=== PATIENT | male | born 1990 | race Caucasian/White ===

== ENCOUNTER 2017-01-16 14:49 | Inpatient (IN) | payer OTHER ==
[~2017-01-16] VITALS: Ht 162.6 cm; Wt 63.5 kg
[~2017-01-16 14:49] MED LIST: HUMALOG SL100 UNITS/; LANTUS100 U/ML SC; NOVOLOG100 U/ML SUBQ
--- NOTE | 2017-01-16 14:49 | NUR ---
Patient was BIBA at this time and ambulated [facility] bed [facility].
[2017-01-16 14:53] VITALS: BP 148/85
[2017-01-16] MEDS ORDERED: NOVOLIN R100 U/ML SUBQ (14:59)
[2017-01-16] MEDS ORDERED: LANTUS INS100 UNITS/ SUBQ (14:59)
[2017-01-16] MEDS ORDERED: KETOROLAC 30 MG/ML VIAL IVP ONE (15:25)
[2017-01-16] MEDS ORDERED: NACL 0.9% 1,000 ML IV ONE ×2 (15:25→16:30)
[2017-01-16] MEDS ORDERED: ONDANSETRON 4 MG/2 ML VIAL IVP ONE ×2 (15:25→17:05)
--- NOTE | 2017-01-16 15:26 | NUR ---
Dr. Sweeney evaluating patient at bedside.
--- NOTE | 2017-01-16 15:30 | NUR ---
PATIENT PRESENTS TO ED WITH BIBA - ABD PAIN WITH VOMITING AND CONSTIPATION STARTING THIS WEEKEND; SKIN IS PINK/WARM/DRY; AAOX4 WITH EVEN AND STEADY GAIT; LUNGS CLEAR BL; HR EVEN AND REGULAR; PT DENIES ANY FEVER, CP, SOB, OR COUGH AT THIS TIME; PATIENT STATES PAIN OF 10/10 AT THIS TIME; VSS; PATIENT POSITIONED FOR COMFORT; HOB ELEVATED; BEDRAILS UP X2; BED DOWN. ER MD MADE AWARE OF PT STATUS.
--- NOTE | 2017-01-16 16:15 | NUR ---
1ML / 50 MCG FENTANYL GIVEN IV RIGHT AC 20G PAIN 10/10
--- NOTE | 2017-01-16 16:15 | NUR ---
1ML / 50 MCG FENTANYL WASTED
[2017-01-16] MEDS ORDERED: METOCLOPRAMIDE 10 MG/2 ML INJ VIAL IVP ONE (16:30)
--- NOTE | 2017-01-16 17:01 | NUR ---
PT UNABLE TO PROVIDE URINE AT THIS TIME
[2017-01-16] MEDS ORDERED: fentaNYL 0.05 MG/ML VIAL IVP ONE (17:05)
[2017-01-16] MEDS ORDERED: MORPHINE SULFATE 4 MG/ML SYR IVP PRN (17:15)
[2017-01-16] MEDS ORDERED: MORPHINE SULFATE 2 MG/ML SYR IVP PRN (17:15)
[2017-01-16] MEDS ORDERED: ACETAMINOPHEN 325 MG TAB PO PRN (17:15)
[2017-01-16] MEDS: DEXT 5% /NACL 0.9% 1,000 ML IV SCH (17:15)
[2017-01-16] MEDS ORDERED: METOCLOPRAMIDE 10 MG/2 ML INJ VIAL IVP PRN ×2 (17:15→20:20)
[2017-01-16] MEDS ORDERED: ONDANSETRON 4 MG/2 ML VIAL IVP PRN ×2 (17:15→21:00)
--- NOTE | 2017-01-16 17:41 | NUR ---
Patient will be admitted to care of DR HYATT. Admited to [facility]. Will go to room 111A. Belongings list completed. Report to RUTH BAJWA.
--- NOTE | 2017-01-16 18:05 | NUR ---
RECEIVED PT FROM ER, 26 YEAR OLD MALE WITH A DIAGNOSIS OF INTRACTABLE NAUSEA AND VOMITING, NO N/V AT THIS TIME, PT IS ABLE TO AMBULATE, SKIN INTACT, IV ON RIGHT AC 20G PATENT AND INTACT, VITALS STABLE, MRSA COLLECTED, ORIENTED PT IN THE ROOM AND USE OF CALL LIGHT, SAFETY/FALL PRECAUTION ENFORCED, CALL LIGHT WITHIN REACH, WILL CONTINUE TO MONITOR.
--- NOTE | 2017-01-16 19:11 | NUR ---
ENDORSED PT TO HUGO Hanna RN FOR CONTINUITY OF CARE AND CONTINUATION OF ADMISSION. PT IS STABLE AT THIS TIME.
--- NOTE | 2017-01-16 19:25 | NUR ---
RECEIVED REPORT FROM DAY NURSEIRON. PATIENT RESTING IN BED, SIGNIFICANT OTHER AT BEDSIDE. NO RESPIRATORY DISTRESS, SOB, OR DISCOMFORT. INITIAL ASSESSMENT AND BODY CHECK DONE. PATIENT IS AOX4, SKIN IS INTACT, IV ACCESS TO RIGHT AC 20G, PATENT. NO N/V NOTED AT THIS TIME. DISCUSSED PLAN OF CARE, MEDICATION REGIMENT, AND PAIN MANAGEMENT WITH PATIENT. PATIENT VERBALIZED UNDERSTANDING. PLACED PATIENT ON SAFETY PRECAUTIONS. CALL LIGHT LEFT WITHIN REACH, WILL CONTINUE TO MONITOR.
[2017-01-16 19:30] VITALS: BP 148/78
[2017-01-16] MEDS: INSULIN LISPRO SLIDING SCALE 100 UNITS/ML VIAL SUBQ PRN (20:18)
[2017-01-16] MEDS: BLOOD GLUCOSE MONITORING 1 DEV DEV FS SCH (20:52)
[2017-01-16] MEDS: FAMOTIDINE 20 MG/2 ML VIAL IVP SCH (21:16)
--- NOTE | 2017-01-16 22:05 | NUR ---
PATIENT RESTING IN BED, SPEAKING ON CELL PHONE. NO RESPIRATORY DISTRESS, SOB, OR DISCOMFORT. CALL LIGHT LEFT WITHIN REACH, WILL CONTINUE TO MONITOR.
[2017-01-17] VITALS: BP 106/57
--- NOTE | 2017-01-17 00:56 | NUR ---
PATIENT IN BED, SLEEPING. NO RESPIRATORY DISTRESS, SOB, OR DISCOMFORT. CALL LIGHT LEFT WITHIN REACH, WILL CONTINUE TO MONITOR.
--- NOTE | 2017-01-17 03:08 | NUR ---
PATIENT ASLEEP. NO RESPIRATORY DISTRESS, SOB, OR DISCOMFORT. CALL LIGHT LEFT WITHIN REACH, WILL CONTINUE TO MONITOR.
[2017-01-17] MEDS: DEXT 5% /NACL 0.9% 1,000 ML IV SCH ×2 (03:58→13:15)
--- NOTE | 2017-01-17 06:16 | NUR ---
PATIENT SLEEPING. NO RESPIRATORY DISTRESS, SOB, OR DISCOMFORT. CALL LIGHT LEFT WITHIN REACH, WILL CONTINUE TO MONITOR.
[2017-01-17] MEDS: BLOOD GLUCOSE MONITORING 1 DEV DEV FS SCH ×2 (06:26→12:24)
[2017-01-17] MEDS: INSULIN LISPRO SLIDING SCALE 100 UNITS/ML VIAL SUBQ PRN ×2 (06:26→12:47)
--- NOTE | 2017-01-17 07:05 | NUR ---
REPORT GIVEN TO DAY NURSEANDREA. PATIENT RESTING IN BED, STABLE. NO RESPIRATORY DISTRESS, SOB, OR DISCOMFORT. ALL NEEDS ATTENDED TO DURING SHIFT, CALL LIGHT LEFT WITHIN REACH.
--- NOTE | 2017-01-17 07:05 | NUR ---
RECEIVED REPORT FROM NIGHT NURSE. PT IS AAOX4. PT IS ON ROOM AIR, IV TO RIGHT HAND 22G INFUSING WELL, PT STATES NO NAUSEA OR STOMACH DISCOMFORT AT THIS TIME. INITIAL ASSESSMENT COMPLETED. REVIEWED PLAN OF ACRE WITH PT. PT VERBALIZED UNDERSTANDING. ORIENTED PT TO ROOM AND ENVIRONMENT, CALL LIGHT WITHIN REACH. WILL CONTINUE TO MONITOR.
[2017-01-17 08:00] VITALS: BP 119/72
--- NOTE | 2017-01-17 08:28 | NUR ---
PATIENT HAS BEEN SCREENED AND CATEGORIZED MODERATE NUTRITION RISK. PATIENT WILL BE SEEN WITHIN 3-5 DAYS OF ADMISSION. 01/19/17-01/21/[address]
[2017-01-17] MEDS: FAMOTIDINE 20 MG/2 ML VIAL IVP SCH (08:50)
--- NOTE | 2017-01-17 08:56 | NUR ---
DUE MEDICATION GIVEN, PT CURRENTLY SLEEPING. NO S/S OF DISTRESS OR DISCOMFORT NOTED. CALL LIGHT WITHIN RAECH. WILL CONTINUE TO MONITOR.
[2017-01-17] MEDS ORDERED: ENOXAPARIN 40 MG/0.4 ML SYR SUBQ SCH (09:00)
--- NOTE | 2017-01-17 10:28 | NUR ---
CM NOTE INITIAL REVIEW SENT TO [facility] FAX# [phone] PH# SHANTE [phone] AND TO [facility] [phone] PH# [phone]
--- NOTE | 2017-01-17 11:05 | NUR ---
CHECKED IN ON PT, PT CURRENTLY AWAKE RESTING IN BED. ALL NEEDS MET. CALL LIGHT WITHIN REACH.
--- NOTE | 2017-01-17 13:32 | NUR ---
PT CURRENTLY VISITING WITH FAMILY, PT STATES NO NAUSEA AT THIS TIME. WILL CONTINUE TO MONITOR.
--- NOTE | 2017-01-17 15:10 | NUR ---
REVIEWED DISCHARGE PLAN WITH PT. PT VERBALIZED UNDERSTANDING.
--- NOTE | 2017-01-17 15:55 | NUR ---
PT SIGNED ALL DISCHARGE PAPERWORK, IV REMOVED TIP INTACT. PRESCRIPTION AND EDUCATION GIVEN PT VERBALIZED UNDERSTANDING. ALL PERSOAL BELONGINGS WITH PT, IS BANDS REMOVED.
[2017-01-17 15:58] VITALS: BP 136/85
[2017-01-17] MEDS ORDERED: LANTUS SOLOS100 U/ML SUBQ (16:03)
--- NOTE | 2017-01-17 16:18 | NUR ---
PT WAS WALKED OUT TO FRONT LOBBY IN STABLE CONDITION.
== END 2017-01-17 16:18 | disposition home or self-care (01) | DRG 812 ==
LOC: MED 15:16 → MTU 17:20
PROVIDERS: ADMIT Hospitalist; ATTEND Hospitalist
DX: T40.7X1A Poisoning by cannabis (derivatives), accidental (unintentional), initial encounter (principal); E10.9 Type 1 diabetes mellitus without complications; R11.2 Nausea with vomiting, unspecified; F12.10 Cannabis abuse, uncomplicated; R03.0 Elevated blood-pressure reading, without diagnosis of hypertension; Y92.89 Other specified places as the place of occurrence of the external cause; Z71.51 Drug abuse counseling and surveillance of drug abuser

== ENCOUNTER 2017-08-23 22:56 | Inpatient (IN) | payer OTHER ==
[~2017-08-23] VITALS: Ht 165.1 cm; Wt 61.2 kg
[~2017-08-23 22:56] MED LIST changes: -HUMALOG SL100 UNITS/; +INSU100S22 SUBQ; -LANTUS100 U/ML SC; -NOVOLOG100 U/ML SUBQ
--- NOTE | 2017-08-23 22:56 | NUR ---
BIBA TO ER BED 11
[2017-08-23 23:00] VITALS: BP 143/80
--- NOTE | 2017-08-23 23:00 | NUR ---
IV LINE PLACED BY MEDICS ON ROUTE.
--- NOTE | 2017-08-23 23:00 | NUR ---
26 Y/O M BIBA W/C/O N/V AND EPIGASTRIC PAIN X TODAY AT 1500 GETTING WORSE. MED HX DM TYPE 1, GASTRITIS. ZOFRAN 4MG X 1 GIVEN ON ROUTE BY MEDICS IV 30 MINUTES AGO. BS [address]
--- NOTE | 2017-08-23 23:20 | NUR ---
PER ER OK FOR PT TO HAVE ICE CHIPS. ICE PROVIDED TO PT AT BEDSIDE.
[2017-08-23] MEDS ORDERED: NACL 0.9% 1,000 ML IV SCH (23:23)
[2017-08-23] MEDS ORDERED: PANTOPRAZOLE 40 MG INJ VIAL IVP ONE (23:25)
[2017-08-23] MEDS ORDERED: MORPHINE SULFATE 4 MG/ML SYR IVP ONE (23:25)
[2017-08-23] MEDS ORDERED: ONDANSETRON 4 MG/2 ML VIAL IVP ONE (23:25)
--- NOTE | 2017-08-23 23:49 | NUR ---
PT STATES HE IS UNABLE TO PROVIDE URINE SAMPLE AT THE MOMENT. MARLA ROBIN MADE AWARE.
[2017-08-23 23:50] LABS: ANION GAP 15.8 (8-16); CARBON DIOXIDE 26.4 mmol/L (21-32); CHLORIDE 98 mmol/L (98-107); CREATININE 1.1 mg/dL (0.7-1.3); GFR ARICAN-AMERICAN 105 mL/min (>90); GLUCOSE 332 mg/dL (74-106); POTASSIUM 4.2 mmol/L (3.5-5.1); SODIUM SERUM 136 mmol/L (136-145); UREA NITROGEN, BLOOD 13 mg/dL (7-18)
[2017-08-23 23:51] LABS: HEMATOCRIT 49.5 % (36-52); HEMOGLOBIN 16.7 g/dL (12.0-18.0); MEAN CORPUSCULAR HEMOGLOBIN 31 pg (27-31); MEAN CORPUSCULAR HGB CONC 34 g/dL (33-37); MEAN CORPUSCULAR VOLUME 92 fL (80-94); PLATELET COUNT (AUTO) 182 K/uL (140-450); RED BLOOD CELL COUNT(AUTO) 5.41 MIL/uL (4.20-6.10); RED CELL DISTRIBUTION WIDTH 12.6 % (11.6-13.7)
[2017-08-23 23:56] LABS: ALBUMIN 4.5 g/dL (3.4-5.0); ASPARTATE AMINOTRANSFERASE 16 U/L (15-37); LIPASE 45 U/L (73-393); TOTAL BILIRUBIN 0.7 mg/dL (0.0-1.0)
[2017-08-24 00:04] LABS: WHITE BLOOD COUNT (AUTO) 18.4 K/uL (4.8-10.8)
[2017-08-24 00:05] LABS: EOSINOPHILS % (MANUAL) 1 % (0-4); LYMPHOCYTES % (MANUAL) 1 % (20-46); MONOCYTES % (MANUAL) 1 % (5-12)
[2017-08-24 00:28] LABS: ACETONE, SERUM NEGATIVE (NEGATIVE)
[2017-08-24 00:29] LABS: APPEARANCE,URINE CLEAR (CLEAR); BILIRUBIN,URINE NEGATIVE (NEGATIVE); BLOOD, URINE TRACE-I (NEGATIVE); COLOR,URINE YELLOW (YELLOW); LEUKOCYTE ESTERASE ,URINE NEGATIVE (NEGATIVE); NITRITE, URINE NEGATIVE (NEGATIVE); PH,URINE 7.5 (5.0-9.0); UGLUCOSE 2+ (NEGATIVE)
[2017-08-24] MEDS ORDERED: KETOROLAC 30 MG/ML VIAL IVP ONE (00:30)
[2017-08-24 00:36] LABS: RBC,URINE 0-5 (RARE) /HPF (0-5); WBC,URINE 0-5 (RARE) /HPF (0-5)
--- NOTE | 2017-08-24 01:08 | NUR ---
PT TAKEN FOR CT VIA WHEELCHAIR.
--- NOTE | 2017-08-24 01:24 | NUR ---
PT BACK FROM CT.
[2017-08-24] MEDS ORDERED: INSU100S22 SUBQ (02:19)
[2017-08-24] MEDS ORDERED: INSU100S45 SUBQ (02:19)
[2017-08-24] MEDS ORDERED: ACETAMINOPHEN 325 MG TAB PO PRN (02:20)
[2017-08-24] MEDS ORDERED: MORPHINE SULFATE 2 MG/ML SYR IVP PRN (02:20)
[2017-08-24] MEDS ORDERED: MORPHINE SULFATE 4 MG/ML SYR IVP PRN (02:20)
--- NOTE | 2017-08-24 02:24 | NUR ---
BS 258, PER PT LANTUS INSULIN 50 UNITS ADMINISTERED BEFORE COMING TO HOSPITAL. ER MADE AWARE.
[2017-08-24 02:50] LABS: BARBITURATE, URINE NEG. ng/ml (NEG <=200); BENZODIAZEPINE, URINE NEG. ng/mL (NEG <=200); CANNABINOID, URINE POS. ng/mL (NEG <=50); COCAINE, URINE NEG. ng/mL (NEG <=300); OPIATE, URINE NEG. ng/mL (NEG <=2000); PHENCYCLIDINE SCREEN,URINE NEG. ng/mL (NEG <=25)
--- NOTE | 2017-08-24 03:06 | NUR ---
Patient will be admitted to care of DR guardado. Admited to TELEMETRY. Will go to room 104B. Belongings list completed. Report to RUTH RAMIREZ.
--- NOTE | 2017-08-24 03:15 | NUR ---
PT TRASFERED TO FLOOR VIA GURNEY, ACCOMPANIED BY TWO RNs. NO S/S OF DISTRESS NOTED DURING TRANSFER.
--- NOTE | 2017-08-24 03:20 | NUR ---
RECEIVED PT FROM ER VIA RAFFY BUSTILLO AAOX4 AMBULATORY IV ON LEFT AC PATENT ON TELEMETRY SR , MRSA NARES KPROTOCOL TAKEN AND SENT TO LAB, PT AND FAMI ORIENTED TO THE FLOOR CALL LIGHT WITHIN REACH
[2017-08-24 03:30] VITALS: BP 105/53
[2017-08-24] MEDS: ONDANSETRON 4 MG/2 ML VIAL IVP PRN ×2 (03:48→09:15)
[2017-08-24] MEDS: NACL 0.9% 1,000 ML IV SCH ×2 (03:52→11:27)
--- NOTE | 2017-08-24 04:00 | NUR ---
PT COMPLAINT OF NAUSEAS AND MEDIC IS GIVEN ORDER
--- NOTE | 2017-08-24 05:36 | NUR ---
PT ON DEEP SLEEP AFTER AIN MEDIC GIVEN ON TELEMETRY SR AND IV ON LEFT AC INFUSING WELL NOT DISTRESS NOTED
[2017-08-24] MEDS: BLOOD GLUCOSE MONITORING 1 DEV DEV FS SCH ×2 (06:20→12:11)
[2017-08-24] MEDS: INSULIN LISPRO SLIDING SCALE 100 UNITS/ML VIAL SUBQ PRN ×2 (06:22→12:31)
--- NOTE | 2017-08-24 06:45 | NUR ---
BLOOD SUGAR 240 COVERAGE WITH 4 UNITS SUBQ FOLLOW PROTOCOL , ON TELEMETRY SR
--- NOTE | 2017-08-24 07:15 | NUR ---
RECEIVED REPORT FROM NIGHT NURSE, PT IS AAOX4, ON ROOM AIR, IV TO LEFT AC 18G INFUSING WELL, SKIN INTACT, PT STATES NO NAUSEA AT THIS TIME, INITIAL ASSESSMENT COMPLETED, REVIEWED PLAN OF CARE WITH PT, PT VERBALIZED UNDERSTANDING, ALL SAFETY PRECAUTIONS MET, CALL LIGHT WITHIN REACH. WILL CONTINUE TO MONITOR.
--- NOTE | 2017-08-24 07:50 | NUR ---
PATIENT HAS BEEN SCREENED AND CATEGORIZED MODERATE NUTRITION RISK. PATIENT WILL BE SEEN WITHIN 3-5 DAYS OF ADMISSION. 08/26/17-08/28/[address]
[2017-08-24 08:00] VITALS: BP 102/55
[2017-08-24] MEDS ORDERED: ENOXAPARIN 40 MG/0.4 ML SYR SUBQ SCH (09:00)
--- NOTE | 2017-08-24 09:19 | NUR ---
DUE MEDICATIONS GIVEN, PT C/O NAUSEA MEDICATED PER MD ORDERS, PT STATES HE WAS NOT ABLE TO BREAKFAST DUE TO THE NAUSEA, ALL NEEDS MET, CALL LIIGHT WITHIN REACH.
--- NOTE | 2017-08-24 11:14 | NUR ---
CM NOTE INITIAL REVIEW FAXED TO [facility] [phone] ROBI ESQUIVELA PH# [phone]
--- NOTE | 2017-08-24 12:32 | NUR ---
PT ATE LUNCH, PT STATES HE TOLERATED WELL. CURRENTLY RESTING, NO S/S OF DISTRESS NOTED. ALL NEEDS MET. WILL CONTINUE TO MONITOR.
--- NOTE | 2017-08-24 14:10 | NUR ---
PT CURRENTLY SLEEPING, EASILY AWAKEN, ALL NEEDS MET. CALL LIGHT WITHIN REACH. WILL CONTINUE TO MONITOR.
--- NOTE | 2017-08-24 15:27 | NUR ---
DISCUSSED DISCHARGE PLAN WITH PT, PT VERBALIZED UNDERSTANDING.
--- NOTE | 2017-08-24 16:00 | NUR ---
PT SIGNED ALL DISCHARGE PAPERWORK, DISCHARGE EDUCATION GIVEN, FOLLOW UP INFORMATION GIVEN, MEDICATION EDUCATION GIVEN. PT VERBALIZED UNDERSTANDING, IV REMOVED TIP INTACT, ALL PERSONAL BELONGINGS WITH PT.
--- NOTE | 2017-08-24 16:07 | NUR ---
PT WAS WALKED OUT TO FRONT LOBBY IN STABLE CONDITION
[2017-08-24] MEDS ORDERED: INSULIN DETEMIR 100 UNITS/ML 10 ML VIAL SUBQ SCH (21:00)
== END 2017-08-24 16:07 | disposition home or self-care (01) | DRG 249 ==
LOC: MED 22:56 → MTU 08-24 02:22
PROVIDERS: ADMIT Hospitalist; ATTEND Hospitalist
DX: K52.9 Noninfective gastroenteritis and colitis, unspecified (principal); E87.3 Alkalosis; E10.65 Type 1 diabetes mellitus with hyperglycemia; E86.0 Dehydration; Z79.4 Long term (current) use of insulin
CPT/HCPCS: 36415; 36600; 80053; 80305; 81001; 82009; 82803; 82948; 83690; 85025; 87081; 96361; 96374; 96375; 99285; C9113; J1650; J1815; J1885; J2270; J2405; J7030

== ENCOUNTER 2017-09-08 10:42 | Emergency (ER) | payer OTHER ==
[~2017-09-08] VITALS: Ht 165.1 cm; Wt 59.0 kg
[~2017-09-08 10:42] MED LIST changes: +INSU100S45 SUBQ
--- NOTE | 2017-09-08 10:44 | NUR ---
PT BIBA TO BED 7 AT THIS TIME.
[2017-09-08 10:49] VITALS: BP 157/81
[2017-09-08] MEDS ORDERED: NACL 0.9% 1,000 ML IV ONE (10:50)
[2017-09-08] MEDS ORDERED: ONDANSETRON 4 MG/2 ML VIAL IVP ONE (10:50)
--- NOTE | 2017-09-08 10:50 | NUR ---
PATIENT BIBA W/ C/O N/V AND EPIAGSTRIC PAIN SINXCE 4 AM; HX OF GASTRITIS AND DM .PER EMS TGHEY GAVE PT 4 MG ZOFRAN IVP;SKIN IS PINK/WARM/DRY; AAOX4 WITH EVEN AND STEADY GAIT; LUNGS CLEAR BL; HR EVEN AND REGULAR; PT DENIES ANY FEVER, CP, SOB, OR COUGH AT THIS TIME; PATIENT STATES PAIN OF 10/10 AT THIS TIME;PATIENT POSITIONED FOR COMFORT; HOB ELEVATED; BEDRAILS UP X2; BED DOWN. ER MD MADE AWARE OF PT STATUS.
[2017-09-08] MEDS ORDERED: HYDROmorphone 1 MG/ML AMP IVP ONE (11:20)
[2017-09-08 11:30] LABS: BASOPHILS # (AUTO) 0.3 K/uL (0.00-0.22); BASOPHILS % (AUTO) 2.5 % (0.0-2.0); EOSINOPHILS % (AUTO) 0.1 % (0.0-4.0); HEMATOCRIT 49.6 % (36-52); HEMOGLOBIN 16.4 g/dL (12.0-18.0); LYMPHOCYTES # (AUTO) 0.7 K/uL (2.0-11.5); LYMPHOCYTES % (AUTO) 5.8 % (20.5-51.1); MEAN CORPUSCULAR HEMOGLOBIN 31 pg (27-31); MEAN CORPUSCULAR HGB CONC 33 g/dL (33-37); MEAN CORPUSCULAR VOLUME 93 fL (80-94); MONOCYTES # (AUTO) 0.1 K/uL (0.8-1.0); MONOCYTES % (AUTO) 0.5 % (1.7-9.3); NEUTROPHILS # (AUTO) 10.4 K/uL (1.8-7.7); NEUTROPHILS % (AUTO) 91.1 % (42.2-75.2); PLATELET COUNT (AUTO) 196 K/uL (140-450); RED BLOOD CELL COUNT(AUTO) 5.36 MIL/uL (4.20-6.10); RED CELL DISTRIBUTION WIDTH 12.7 % (11.6-13.7)
[2017-09-08 11:33] LABS: ACETONE, SERUM NEGATIVE (NEGATIVE)
[2017-09-08 11:42] LABS: ANION GAP 14.1 (8-16); CARBON DIOXIDE 26.8 mmol/L (21-32); CHLORIDE 102 mmol/L (98-107); CREATININE 0.8 mg/dL (0.7-1.3); GFR ARICAN-AMERICAN 150 mL/min (>90); GLUCOSE 152 mg/dL (74-106); POTASSIUM 3.9 mmol/L (3.5-5.1); SODIUM SERUM 139 mmol/L (136-145); UREA NITROGEN, BLOOD 13 mg/dL (7-18)
[2017-09-08 11:48] LABS: ALBUMIN 4.2 g/dL (3.4-5.0); ASPARTATE AMINOTRANSFERASE 16 U/L (15-37); TOTAL BILIRUBIN 0.3 mg/dL (0.0-1.0)
--- NOTE | 2017-09-08 11:53 | NUR ---
PT STILL UNABLE TO GIVE URINE AT THIS TIME;
[2017-09-08 11:56] LABS: WHITE BLOOD COUNT (AUTO) 11.5 K/uL (4.8-10.8)
[2017-09-08] MEDS ORDERED: DICYCLOMINE HCL LIQUID 10 MG/5 ML UDC PO ONE (12:15)
[2017-09-08] MEDS ORDERED: ALUMINUM HYD/MAG/SIMETHICONE 30 ML UDC PO ONE (12:15)
[2017-09-08] MEDS ORDERED: LIDOCAINE VISCOUS 2% 20 ML UDC PO ONE (12:15)
[2017-09-08 12:51] LABS: APPEARANCE,URINE CLEAR (CLEAR); BILIRUBIN,URINE NEGATIVE (NEGATIVE); BLOOD, URINE NEGATIVE (NEGATIVE); COLOR,URINE YELLOW (YELLOW); LEUKOCYTE ESTERASE ,URINE NEGATIVE (NEGATIVE); NITRITE, URINE NEGATIVE (NEGATIVE); PH,URINE 8.5 (5.0-9.0); UGLUCOSE NEGATIVE (NEGATIVE)
[2017-09-08 14:07] VITALS: BP 107/55
--- NOTE | 2017-09-08 14:07 | NUR ---
Patient discharged with v/s stable. Written and verbal after care instructions given and explained. Patient alert, oriented and verbalized understanding of instructions. Ambulatory with steady gait. All questions addressed prior to discharge. ID band removed. Patient advised to follow up with PMD. Rx of NORCO AND MYLANTA given. Patient educated on indication of medication including possible reaction and side effects. Opportunity to ask questions provided and answered.
== END 2017-09-08 14:07 | disposition home or self-care (01) ==
LOC: MED 10:42
DX: R10.9 Unspecified abdominal pain (principal); R11.2 Nausea with vomiting, unspecified; E11.9 Type 2 diabetes mellitus without complications
CPT/HCPCS: 36415; 80053; 81003; 82009; 82948; 85025; 96361; 96374; 96375; 99284; J1170; J2405; J7030

== ENCOUNTER 2018-04-06 16:04 | Emergency (ER) | payer OTHER ==
[~2018-04-06] VITALS: Ht 157.5 cm; Wt 59.0 kg
[2018-04-06 16:05] VITALS: BP 148/119
--- NOTE | 2018-04-06 16:06 | NUR ---
Patient BIBA to bed 5 at this time.
--- NOTE | 2018-04-06 16:20 | NUR ---
PT BIBA FOR EPIGASTIC PAIN. PT APPEARS TO BE IN EXCRUTIATING PAIN. HE IS VISIBLY DIAPHORETIC AND VOMITING. PATIENT STATES PAIN 10/10. IV ESTABLISHED EN ROUTE BY [facility], LEFT HAND 20G. NS STARTED AND ZOFRAN GIVEN BY ZAC MIRANDA PER ED MD VERBAL ORDERS. AAOX4 WITH EVEN AND STEADY GAIT; LUNGS CLEAR BL; HR TACHY; PT IS AFEBRILE, DENIES CP, SOB, OR COUGH AT THIS TIME; PATIENT POSITIONED FOR COMFORT; HOB ELEVATED; BEDRAILS UP X2; BED DOWN. ER MD MADE AWARE OF PT STATUS.
[2018-04-06] MEDS ORDERED: NACL 0.9% 1,000 ML IV SCH (16:23)
[2018-04-06] MEDS ORDERED: diphenhydrAMINE 50 MG/ML VIAL IVP ONE (16:25)
[2018-04-06] MEDS ORDERED: PROMETHAZINE 25 MG/ML VIAL IM ONE (16:25)
[2018-04-06] MEDS ORDERED: ONDANSETRON 4 MG/2 ML VIAL ONE (16:25)
[2018-04-06] MEDS ORDERED: HYDROmorphone PFS 2 MG/ML SYR IVP ONE (16:25)
[2018-04-06] MEDS ORDERED: METOCLOPRAMIDE 10 MG/2 ML INJ VIAL IVP ONE (16:25)
[2018-04-06] MEDS ORDERED: ONDANSETRON 4 MG/2 ML VIAL IVP ONE (16:25)
[2018-04-06] MEDS ORDERED: FAMOTIDINE 20 MG/2 ML VIAL IVP ONE (16:25)
[2018-04-06] MEDS ORDERED: METOCLOPRAMIDE 10 MG/2 ML INJ VIAL ONE (16:25)
--- NOTE | 2018-04-06 16:25 | NUR ---
BLOOD SUGAR OF 138
--- NOTE | 2018-04-06 16:59 | NUR ---
PATIENT RECIEVED MEDICATION FOR PAIN AND NAUSEA.
[2018-04-06 17:15] LABS: BASOPHILS % (AUTO) 0.3 % (0.0-2.0); EOSINOPHILS # (AUTO) 0.1 K/uL (0-0.4); EOSINOPHILS % (AUTO) 0.5 % (0.0-4.0); HEMATOCRIT 45.9 % (36-52); HEMOGLOBIN 15.2 g/dL (12.0-18.0); LYMPHOCYTES # (AUTO) 1.4 K/uL (2.0-11.5); LYMPHOCYTES % (AUTO) 11.9 % (20.5-51.1); MEAN CORPUSCULAR HEMOGLOBIN 31 pg (27-31); MEAN CORPUSCULAR HGB CONC 33 g/dL (33-37); MEAN CORPUSCULAR VOLUME 92.7 fL (80-94); MONOCYTES # (AUTO) 0.3 K/uL (0.8-1.0); MONOCYTES % (AUTO) 2.5 % (1.7-9.3); NEUTROPHILS # (AUTO) 9.6 K/uL (1.8-7.7); NEUTROPHILS % (AUTO) 84.8 % (42.2-75.2); PLATELET COUNT (AUTO) 133 K/uL (140-450); RED BLOOD CELL COUNT(AUTO) 4.95 MIL/uL (4.20-6.10); RED CELL DISTRIBUTION WIDTH 13.5 % (11.6-13.7); WHITE BLOOD COUNT (AUTO) 11.4 K/uL (4.8-10.8)
[2018-04-06 17:38] LABS: ACETAMINOPHEN 3.1 ug/ml (10-30); ALBUMIN 3.2 g/dL (3.4-5.0); AMYLASE 35 U/L (25-115); ASPARTATE AMINOTRANSFERASE 23 U/L (15-37); CARBON DIOXIDE 24.3 mmol/L (21-32); CHLORIDE 107 mmol/L (98-107); CREATININE 0.8 mg/dL (0.7-1.3); GFR ARICAN-AMERICAN 150 mL/min (>90); GLUCOSE 138 mg/dL (74-106); LIPASE 39 U/L (73-393); POTASSIUM 3.3 mmol/L (3.5-5.1); SALICYLATE < 2.8 mg/dL (2.8-20.0); SODIUM SERUM 141 mmol/L (136-145); TOTAL BILIRUBIN 0.4 mg/dL (0.0-1.0); UREA NITROGEN, BLOOD 7 mg/dL (7-18)
[2018-04-06 18:03] LABS: CKMB RELATIVE INDEX 0.8 (0.0-2.5); CREATINE KINASE MB 5.6 ng/mL (0-3.6)
--- NOTE | 2018-04-06 18:12 | NUR ---
COLECTED URINE SPECIMEN FOR LAB
[2018-04-06 18:20] LABS: APPEARANCE,URINE CLOUDY (CLEAR); BILIRUBIN,URINE NEGATIVE (NEGATIVE); BLOOD, URINE NEGATIVE (NEGATIVE); COLOR,URINE YELLOW (YELLOW); LEUKOCYTE ESTERASE ,URINE NEGATIVE (NEGATIVE); NITRITE, URINE NEGATIVE (NEGATIVE); PH,URINE >=9.0 (5.0-9.0); UGLUCOSE NEGATIVE (NEGATIVE)
[2018-04-06 18:31] LABS: RBC,URINE NONE SEEN /HPF (0-5); WBC,URINE NONE SEEN /HPF (0-5)
[2018-04-06 18:38] LABS: BARBITURATE, URINE NEG. ng/ml (NEG <=200); BENZODIAZEPINE, URINE NEG. ng/mL (NEG <=200); CANNABINOID, URINE POS. ng/mL (NEG <=50); COCAINE, URINE POS. ng/mL (NEG <=300); OPIATE, URINE NEG. ng/mL (NEG <=2000); PHENCYCLIDINE SCREEN,URINE NEG. ng/mL (NEG <=25)
[2018-04-06 19:00] VITALS: BP 103/77
--- NOTE | 2018-04-06 19:02 | NUR ---
Patient discharged with v/s stable. Written and verbal after care instructions given and explained. Patient alert, oriented and verbalized understanding of instructions. Ambulatory with steady gait. All questions addressed prior to discharge. ID band removed. Patient advised to follow up with PMD. Rx of reglan given. Patient educated on indication of medication including possible reaction and side effects. Opportunity to ask questions provided and answered.
== END 2018-04-06 19:02 | disposition home or self-care (01) ==
LOC: MED 16:04
DX: K31.89 Other diseases of stomach and duodenum (principal); R11.10 Vomiting, unspecified; F14.10 Cocaine abuse, uncomplicated; F12.10 Cannabis abuse, uncomplicated; E11.9 Type 2 diabetes mellitus without complications; Z79.899 Other long term (current) drug therapy
CPT/HCPCS: 36415; 74176; 80053; 80305; 81001; 82150; 82550; 82553; 82948; 83690; 85025; 96361; 96372; 96374; 96375; 99285; G0480; G0482; J1170; J1200; J2405; J2550; J2765; J3490

== ENCOUNTER 2018-04-11 11:13 | Emergency (ER) | payer OTHER ==
[~2018-04-11] VITALS: Ht 162.6 cm; Wt 59.0 kg
--- NOTE | 2018-04-11 11:13 | NUR ---
Patient BIBA to bed 7 at this time.
[2018-04-11 11:14] VITALS: BP 187/125
--- NOTE | 2018-04-11 11:37 | NUR ---
Patient being evaluated by Dr. Hagan at bedside.
[2018-04-11] MEDS ORDERED: NACL 0.9% 1,000 ML IV SCH (12:03)
--- NOTE | 2018-04-11 12:04 | NUR ---
PATIENT COMPLAINS OF SHARP EPIGASTRIC PAIN AT A PAIN LEVEL OF 10. PATIENT WAS RECENTLY SEEN IN THE ER ON MondayAPRIL 06 AND WAS DISCHARGED. PATIENT HAS NAUSEA AND VOMITNG. PATIENT ADMITS TO SMOKING MARIJAUNA. PATIENT IS A DIABETIC AND STATES HE TOOK HIS MEDICATION THIS MORNING. HIS BS WAS 227. PATIENT HAS AN IV IN THE LEFT WRIST 18 GAUGE. PT HAS NO KNOWN ALLERGIES. PATIENT HAS BEEN VOMITING INTERMITTENT SINCE BEING TRIAGED.
[2018-04-11] MEDS ORDERED: METOCLOPRAMIDE 10 MG/2 ML INJ VIAL IVP ONE (12:05)
[2018-04-11] MEDS ORDERED: diphenhydrAMINE 50 MG/ML VIAL IVP ONE (12:05)
[2018-04-11] MEDS ORDERED: FAMOTIDINE 20 MG/2 ML VIAL IVP ONE (12:05)
[2018-04-11] MEDS ORDERED: LORazepam 2 MG/ML VIAL IVP ONE (12:05)
--- NOTE | 2018-04-11 12:32 | NUR ---
Pt no longer thrashing, moaning in bed. Pt now appears to be resting comfortably, no longer diaphoretic, VSS.
--- NOTE | 2018-04-11 12:35 | NUR ---
X-Ray at bedside.
--- NOTE | 2018-04-11 12:52 | NUR ---
lab at bedside for blood draw.
[2018-04-11 12:57] LABS: HEMATOCRIT 46.8 % (36-52); HEMOGLOBIN 15.6 g/dL (12.0-18.0); MEAN CORPUSCULAR HEMOGLOBIN 31 pg (27-31); MEAN CORPUSCULAR HGB CONC 33 g/dL (33-37); MEAN CORPUSCULAR VOLUME 92.9 fL (80-94); PLATELET COUNT (AUTO) 125 K/uL (140-450); RED BLOOD CELL COUNT(AUTO) 5.04 MIL/uL (4.20-6.10); RED CELL DISTRIBUTION WIDTH 13.3 % (11.6-13.7); WHITE BLOOD COUNT (AUTO) 15.8 K/uL (4.8-10.8)
[2018-04-11 13:03] LABS: ANION GAP 13.7 (8-16); CARBON DIOXIDE 25.2 mmol/L (21-32); CHLORIDE 104 mmol/L (98-107); CREATININE 0.8 mg/dL (0.7-1.3); GFR ARICAN-AMERICAN 150 mL/min (>90); GLUCOSE 276 mg/dL (74-106); POTASSIUM 4.9 mmol/L (3.5-5.1); SODIUM SERUM 138 mmol/L (136-145); UREA NITROGEN, BLOOD 10 mg/dL (7-18)
[2018-04-11 13:09] LABS: ALBUMIN 3.7 g/dL (3.4-5.0); ASPARTATE AMINOTRANSFERASE 21 U/L (15-37); LIPASE 47 U/L (73-393); TOTAL BILIRUBIN 0.3 mg/dL (0.0-1.0)
[2018-04-11 13:16] LABS: LYMPHOCYTES % (MANUAL) 7 % (20-46); MONOCYTES % (MANUAL) 1 % (5-12)
--- NOTE | 2018-04-11 13:23 | NUR ---
Patient appears to be resting comfortably in bed. VSS. Respirations even and unlabored.
--- NOTE | 2018-04-11 14:42 | NUR ---
PATIENT WAS DISCHARGED WITH MEDICATION PRESCRIPTION PEPCID, REGLAN AND ATIVAN. PATIENT WAS DIFFICULT AROUSE AND THE RN USED THE WHEELCHAIR TO DC HIM. IV WAS DC.
[2018-04-11 14:44] VITALS: BP 137/78
[2018-04-11 17:08] LABS: APPEARANCE,URINE CLEAR (CLEAR); BILIRUBIN,URINE NEGATIVE (NEGATIVE); BLOOD, URINE NEGATIVE (NEGATIVE); COLOR,URINE YELLOW (YELLOW); LEUKOCYTE ESTERASE ,URINE NEGATIVE (NEGATIVE); NITRITE, URINE NEGATIVE (NEGATIVE); UGLUCOSE 3+ (NEGATIVE)
[2018-04-11 17:17] LABS: BARBITURATE, URINE NEG. ng/ml (NEG <=200); BENZODIAZEPINE, URINE NEG. ng/mL (NEG <=200); CANNABINOID, URINE POS. ng/mL (NEG <=50); COCAINE, URINE NEG. ng/mL (NEG <=300); OPIATE, URINE NEG. ng/mL (NEG <=2000); PHENCYCLIDINE SCREEN,URINE NEG. ng/mL (NEG <=25)
== END 2018-04-11 14:42 | disposition home or self-care (01) ==
LOC: MED 11:13
DX: F12.10 Cannabis abuse, uncomplicated (principal); F14.10 Cocaine abuse, uncomplicated; K29.70 Gastritis, unspecified, without bleeding; R94.31 Abnormal electrocardiogram [ECG] [EKG]; E11.9 Type 2 diabetes mellitus without complications; K21.9 Gastro-esophageal reflux disease without esophagitis; Z91.19 Patient's noncompliance with other medical treatment and regimen; Z79.899 Other long term (current) drug therapy
CPT/HCPCS: 36415; 71045; 80053; 80305; 81003; 83690; 85025; 93005; 96361; 96374; 96375; 99285; G0482; J1200; J2060; J2765; J3490; J7030; Q0092

== ENCOUNTER 2019-01-06 15:05 | Emergency (ER) | payer OTHER ==
[~2019-01-06] VITALS: Ht 167.6 cm; Wt 68.0 kg
[2019-01-06 15:05] VITALS: BP_SYST 102; BP_SYST 147; BP_DIAS 68; BP_DIAS 76
--- NOTE | 2019-01-06 15:05 | NUR ---
PATIENT BIB ALS TO ER BED 9.
--- NOTE | 2019-01-06 15:06 | NUR ---
PT BIBA ALS TO BED 9
--- NOTE | 2019-01-06 15:13 | NUR ---
28 Y/O BIB AMBULANCE WITH C/O EPIGASTRIC PAIN THAT CAUSES N/V. PAIN 08/15. HAS BEEN EXPERIENING SYMPTOMS X 3 DAYS. 20 G IV INSTERTED IN THE FIELD AND GIVEN ZOFRAN. HX OF GASTRISTIS, GERD AND DM. BS 114. MD NOTIFIED. WILL CONTINUE TO MONITOR.
[2019-01-06] MEDS ORDERED: NACL 0.9% 1,000 ML IV SCH (15:26)
[2019-01-06] MEDS ORDERED: NACL 0.9% 2,000 ML IV SCH (15:26)
[2019-01-06] MEDS ORDERED: diphenhydrAMINE 50 MG/ML VIAL IVP ONE (15:30)
[2019-01-06] MEDS ORDERED: MORPHINE SULFATE 4 MG/ML SYR IVP ONE (15:30)
[2019-01-06] MEDS ORDERED: FAMOTIDINE 20 MG/2 ML VIAL IVP ONE (15:30)
[2019-01-06] MEDS ORDERED: PROMETHAZINE 25 MG/ML VIAL IM ONE (15:30)
[2019-01-06] MEDS ORDERED: HALOPERIDOL IM 5 MG/ML VIAL IM ONE (15:30)
[2019-01-06] MEDS ORDERED: ONDANSETRON 4 MG/2 ML VIAL IVP ONE (15:30)
[2019-01-06 16:14] LABS: BASOPHILS % (AUTO) 0.3 % (0.0-2.0); EOSINOPHILS % (AUTO) 0.1 % (0.0-4.0); HEMATOCRIT 42.7 % (36-52); HEMOGLOBIN 14.4 g/dL (12.0-18.0); LYMPHOCYTES # (AUTO) 1.2 K/uL (2.0-11.5); LYMPHOCYTES % (AUTO) 8.7 % (20.5-51.1); MEAN CORPUSCULAR HEMOGLOBIN 31 pg (27-31); MEAN CORPUSCULAR HGB CONC 34 g/dL (33-37); MEAN CORPUSCULAR VOLUME 91.2 fL (80-94); MONOCYTES # (AUTO) 0.4 K/uL (0.8-1.0); MONOCYTES % (AUTO) 3.2 % (1.7-9.3); NEUTROPHILS # (AUTO) 12.1 K/uL (1.8-7.7); NEUTROPHILS % (AUTO) 87.7 % (42.2-75.2); PLATELET COUNT (AUTO) 153 K/uL (140-450); RED BLOOD CELL COUNT(AUTO) 4.68 MIL/uL (4.20-6.10); RED CELL DISTRIBUTION WIDTH 13.1 % (11.6-13.7); WHITE BLOOD COUNT (AUTO) 13.8 K/uL (4.8-10.8)
--- NOTE | 2019-01-06 16:16 | NUR ---
PT TO RADIOLOGY VIA [facility]
[2019-01-06 16:22] LABS: ACETONE, SERUM NEGATIVE (NEGATIVE); ANION GAP 12.5 (8-16); CARBON DIOXIDE 27.8 mmol/L (21-32); CHLORIDE 103 mmol/L (98-107); CREATININE 0.6 mg/dL (0.7-1.3); GFR ARICAN-AMERICAN 208 mL/min (>90); GLUCOSE 139 mg/dL (74-106); POTASSIUM 3.3 mmol/L (3.5-5.1); SODIUM SERUM 140 mmol/L (136-145); UREA NITROGEN, BLOOD 5 mg/dL (7-18)
[2019-01-06 16:35] LABS: ALBUMIN 3.8 g/dL (3.4-5.0); AMYLASE 56 U/L (25-115); ASPARTATE AMINOTRANSFERASE 68 U/L (15-37); LIPASE 55 U/L (73-393); MAGNESIUM 1.5 mg/dL (1.8-2.4); TOTAL BILIRUBIN 0.6 mg/dL (0.0-1.0)
--- NOTE | 2019-01-06 18:57 | NUR ---
Patient discharged with v/s stable. Written and verbal after care instructions given and explained. Patient alert, oriented and verbalized understanding of instructions. Ambulatory with steady gait. All questions addressed prior to discharge. ID band removed. Patient advised to follow up with PMD. Rx of REGLAN given. Patient educated on indication of medication including possible reaction and side effects. Opportunity to ask questions provided and answered.
== END 2019-01-06 19:01 | disposition home or self-care (01) ==
LOC: MED 15:05
DX: E11.43 Type 2 diabetes mellitus with diabetic autonomic (poly)neuropathy (principal); K31.84 Gastroparesis; K21.9 Gastro-esophageal reflux disease without esophagitis; F12.10 Cannabis abuse, uncomplicated; Z79.4 Long term (current) use of insulin
CPT/HCPCS: 36415; 36600; 71045; 74176; 80053; 82009; 82150; 82803; 83036; 83605; 83690; 83735; 85025; 96361; 96372; 96374; 96375; 99284; G0482; J1200; J1630; J2270; J2405; J2550; J3490; J7030; Q0092

== ENCOUNTER 2019-10-21 15:28 | Emergency (ER) | payer OTHER ==
[~2019-10-21] VITALS: Ht 165.1 cm; Wt 63.5 kg
[2019-10-21 15:33] VITALS: BP 144/74
--- NOTE | 2019-10-21 15:48 | NUR ---
PATIENT BIBA TO BED 11.
[2019-10-21] MEDS ORDERED: NACL 0.9% 500 ML IV ONE (16:24)
[2019-10-21] MEDS ORDERED: ONDANSETRON 4 MG/2 ML VIAL IVP ONE (16:25)
[2019-10-21] MEDS ORDERED: HALOPERIDOL IM 5 MG/ML VIAL IVP ONE (16:25)
[2019-10-21] MEDS ORDERED: diphenhydrAMINE 50 MG/ML VIAL IVP ONE (16:25)
[2019-10-21] MEDS ORDERED: PANTOPRAZOLE 40 MG INJ VIAL IVP ONE (16:25)
[2019-10-21] MEDS ORDERED: KETOROLAC 30 MG/ML VIAL IVP ONE (16:25)
[2019-10-21] MEDS ORDERED: PROCHLORPERAZINE 10 MG/2 ML VIAL IVP ONE (16:40)
[2019-10-21 16:48] LABS: BASOPHILS % (AUTO) 0.2 % (0.0-2.0); HEMATOCRIT 46.5 % (36-52); HEMOGLOBIN 15.7 g/dL (12.0-18.0); LYMPHOCYTES # (AUTO) 0.8 K/uL (2.0-11.5); MEAN CORPUSCULAR HEMOGLOBIN 31 pg (27-31); MEAN CORPUSCULAR HGB CONC 34 g/dL (33-37); MEAN CORPUSCULAR VOLUME 92.5 fL (80-94); MONOCYTES # (AUTO) 0.2 K/uL (0.8-1.0); MONOCYTES % (AUTO) 1.7 % (1.7-9.3); NEUTROPHILS # (AUTO) 11.7 K/uL (1.8-7.7); NEUTROPHILS % (AUTO) 92.1 % (42.2-75.2); PLATELET COUNT (AUTO) 204 K/uL (140-450); RED BLOOD CELL COUNT(AUTO) 5.03 MIL/uL (4.20-6.10); RED CELL DISTRIBUTION WIDTH 12.7 % (11.6-13.7); WHITE BLOOD COUNT (AUTO) 12.7 K/uL (4.8-10.8)
--- NOTE | 2019-10-21 17:36 | NUR ---
PT PAIN IS AT 8/10.
--- NOTE | 2019-10-21 17:36 | NUR ---
AT 10AM PT HAD EPISODES OF NAUSEA AND VOMITTING OF RECENTLY INGESTED FOOD ACCOMPANIED BY EPIGASTRIC PAIN AT 10/10 . PREVIOUS HX OF EPIGASTRIC PAIN AND MEDS TAKEN WITH NO RELIEF. PT ALERT , AWAKE .AMBULATORY , AFEBRILE . EPIGASTRIC AREA TENDERNESS NOTED . NO DIARRHEA NOR CONSTIPATION.
[2019-10-21 17:46] LABS: ANION GAP 16.5 (8-16); CARBON DIOXIDE 26.3 mmol/L (21-32); POTASSIUM 3.8 mmol/L (3.5-5.1)
[2019-10-21 17:47] LABS: ALBUMIN 4.2 g/dL (3.4-5.0); CREATININE 0.8 mg/dL (0.7-1.3); TOTAL BILIRUBIN 0.5 mg/dL (0.0-1.0)
[2019-10-21 18:03] VITALS: BP 125/66
--- NOTE | 2019-10-21 18:03 | NUR ---
IV removed, catheter intact and site benign. Applied folded 4x4 gauze and tape to stop bleeding.
--- NOTE | 2019-10-21 18:03 | NUR ---
Patient discharged with v/s stable. Written and verbal after care instructions given and explained. Patient verbalized understanding. Ambulatory with steady gait. All questions addressed prior to discharge. Advised to follow up with PMD.
== END 2019-10-21 18:03 | disposition home or self-care (01) ==
LOC: MED 15:28
DX: E11.43 Type 2 diabetes mellitus with diabetic autonomic (poly)neuropathy (principal); K31.84 Gastroparesis; R11.2 Nausea with vomiting, unspecified; K21.9 Gastro-esophageal reflux disease without esophagitis; Z79.4 Long term (current) use of insulin
CPT/HCPCS: 36415; 80053; 83690; 85025; 96361; 96374; 96375; 99283; C9113; J0780; J1200; J1630; J1885; J2405

== ENCOUNTER 2021-10-05 10:23 | Emergency (ER) | payer OTHER ==
[~2021-10-05] VITALS: Ht 165.1 cm; Wt 61.2 kg
[2021-10-05 10:27] VITALS: BP 177/99
--- NOTE | 2021-10-05 10:30 | NUR ---
BIBA TO BED 4.
--- NOTE | 2021-10-05 10:43 | NUR ---
31/M BIBA WITH C/O ABDOMINAL PAIN, N/V X3 DAYS. PATIENT STATES HE HAS HX OF GASTRITIS AND STATES "I THINK I AM HAVING A FLARE UP." PATIENT STATES HE HAS BEEN TAKING ZOFRAN AND ANOTHER "UNKNOWN MEDICATION" FOR HIS STOMACH BUT STATES UNABLE TO FIND RELIEF. PATIENT STATES PAIN AND N/V HAS WORSENED OVERNIGHT, REPORTS 10/10 BURNING PAIN RADIATING UP ABDOMEN. DENIES CP, SOB, FEVER OR CHILLS. EMS REPORTS GIVING 4MG OF ZOFRAN ENROUTE TO ED WITH MILD RELIEF.
[2021-10-05] MEDS ORDERED: NACL 0.9% 1,000 ML IV ONE (11:30)
[2021-10-05] MEDS ORDERED: METOCLOPRAMIDE 10 MG/2 ML INJ VIAL IVP ONE (11:30)
[2021-10-05] MEDS ORDERED: diphenhydrAMINE 50 MG/ML VIAL IVP ONE (11:30)
--- NOTE | 2021-10-05 11:30 | NUR ---
PATIENT RESTING WITH EYES CLOSED, ON BEDSIDE WASTE CHOPPER. VSS. ALL NEEDS MET AT THIS TIME, WILL CONTINUE TO MONITOR.
[2021-10-05 11:59] LABS: BASOPHILS # (AUTO) 0.1 K/uL (0.00-0.22); BASOPHILS % (AUTO) 0.5 % (0.0-2.0); HEMATOCRIT 46.7 % (36-52); HEMOGLOBIN 15.9 g/dL (12.0-18.0); LYMPHOCYTES # (AUTO) 1.1 K/uL (2.0-11.5); LYMPHOCYTES % (AUTO) 8.2 % (20.5-51.1); MEAN CORPUSCULAR HEMOGLOBIN 31 pg (27-31); MEAN CORPUSCULAR HGB CONC 34 g/dL (33-37); MEAN CORPUSCULAR VOLUME 90.9 fL (80-94); MONOCYTES # (AUTO) 0.8 K/uL (0.8-1.0); MONOCYTES % (AUTO) 5.8 % (1.7-9.3); NEUTROPHILS % (AUTO) 85.5 % (42.2-75.2); PLATELET COUNT (AUTO) 230 K/uL (140-450); RED BLOOD CELL COUNT(AUTO) 5.14 MIL/uL (4.20-6.10); RED CELL DISTRIBUTION WIDTH 12.9 % (11.6-13.7)
[2021-10-05 12:10] LABS: CARBON DIOXIDE 26.2 mmol/L (21-32); MAGNESIUM 1.7 mg/dL (1.8-2.4); POTASSIUM 4.2 mmol/L (3.5-5.1)
--- NOTE | 2021-10-05 12:58 | NUR ---
PATIENT STATES HE IS UNABLE TO PROVIDE URINE SAMPLE AT THIS TIME.
--- NOTE | 2021-10-05 14:48 | NUR ---
PATIENT PROVIDED URINE SAMPLE, SAMPLE COLLECTED AND HANDED TO ACCOUNTANT SUPERVISOR.
[2021-10-05 15:29] LABS: APPEARANCE,URINE CLEAR (CLEAR); BILIRUBIN,URINE NEGATIVE (NEGATIVE); BLOOD, URINE NEGATIVE (NEGATIVE); COLOR,URINE YELLOW (YELLOW); LEUKOCYTE ESTERASE ,URINE NEGATIVE (NEGATIVE); NITRITE, URINE NEGATIVE (NEGATIVE); UGLUCOSE 3+ (NEGATIVE)
--- NOTE | 2021-10-05 15:50 | NUR ---
DR. ANN AT BEDSIDE W/ PT
--- NOTE | 2021-10-05 16:00 | NUR ---
PATIENT RESTING IN BED ON BEDSIDE SIDING STAPLER. STATES "I FEEL MUCH BETTER" WILL CONTINUE TO MONITOR.
[2021-10-05 16:25] VITALS: BP 101/55
--- NOTE | 2021-10-05 16:25 | NUR ---
Patient discharged with v/s stable. Written and verbal after care instructions ABOUT CANNABOID HYPEREMESIS SYNDROME AND GASTROPARESIS given and explained. Patient verbalized understanding. Ambulatory with steady gait. All questions addressed prior to discharge. Advised to follow up with PMD.
--- NOTE | 2021-10-05 16:26 | NUR ---
The patient's care was reviewed and supervised by Janee Chang RN.
== END 2021-10-05 16:25 | disposition home or self-care (01) ==
LOC: MED 10:23
DX: R10.84 Generalized abdominal pain (principal); R00.0 Tachycardia, unspecified; R11.2 Nausea with vomiting, unspecified; K21.9 Gastro-esophageal reflux disease without esophagitis; E11.9 Type 2 diabetes mellitus without complications; Z79.4 Long term (current) use of insulin
CPT/HCPCS: 36415; 74018; 80048; 81003; 82803; 83690; 83735; 85025; 96361; 96374; 96375; 99284; J1200; J2765; J7030; Q0092

== ENCOUNTER 2021-12-01 21:05 | Emergency (ER) | payer OTHER ==
[~2021-12-01] VITALS: Ht 165.1 cm; Wt 59.0 kg
[2021-12-01 21:05] VITALS: BP 142/80
--- NOTE | 2021-12-01 21:27 | NUR ---
PT TAKEN TO CHAIR
[2021-12-01] MEDS ORDERED: ONDANSETRON 4 MG/2 ML VIAL IVP ONE ×2 (21:55→22:45)
[2021-12-01] MEDS ORDERED: FAMOTIDINE 20 MG/2 ML VIAL IVP ONE (21:55)
[2021-12-01] MEDS ORDERED: NACL 0.9% 1,000 ML IV SCH (21:55)
--- NOTE | 2021-12-01 22:34 | NUR ---
Dr. Mercedes examining patient.
[2021-12-01] MEDS ORDERED: LORazepam 2 MG/ML VIAL IVP ONE ×2 (22:45→22:50)
[2021-12-01] MEDS ORDERED: PANTOPRAZOLE 40 MG INJ VIAL IVP ONE (22:45)
[2021-12-01] MEDS ORDERED: PROCHLORPERAZINE 10 MG/2 ML VIAL IVP ONE (22:45)
[2021-12-01] MEDS ORDERED: diphenhydrAMINE 50 MG/ML VIAL IVP ONE (22:50)
[2021-12-01] MEDS ORDERED: METOCLOPRAMIDE 10 MG/2 ML INJ VIAL IVP ONE (23:20)
--- NOTE | 2021-12-01 23:40 | NUR ---
TX CHARTED IN ERROR. NO TX GIVEN.
[2021-12-02 00:48] LABS: BASOPHILS % (AUTO) 0.4 % (0.0-2.0); EOSINOPHILS % (AUTO) 0.3 % (0.0-4.0); HEMATOCRIT 45.1 % (36-52); HEMOGLOBIN 15.8 g/dL (12.0-18.0); LYMPHOCYTES # (AUTO) 0.6 K/uL (2.0-11.5); LYMPHOCYTES % (AUTO) 5.5 % (20.5-51.1); MEAN CORPUSCULAR HEMOGLOBIN 31 pg (27-31); MEAN CORPUSCULAR HGB CONC 35 g/dL (33-37); MEAN CORPUSCULAR VOLUME 89.1 fL (80-94); MONOCYTES # (AUTO) 0.1 K/uL (0.8-1.0); MONOCYTES % (AUTO) 1.3 % (1.7-9.3); NEUTROPHILS # (AUTO) 10.2 K/uL (1.8-7.7); NEUTROPHILS % (AUTO) 92.5 % (42.2-75.2); PLATELET COUNT (AUTO) 231 K/uL (140-450); RED BLOOD CELL COUNT(AUTO) 5.05 MIL/uL (4.20-6.10); RED CELL DISTRIBUTION WIDTH 12.9 % (11.6-13.7)
[2021-12-02 01:07] LABS: ANION GAP 16.4 (8-16); CARBON DIOXIDE 25.3 mmol/L (21-32); CREATININE 0.8 mg/dL (0.6-1.3); POTASSIUM 3.7 mmol/L (3.5-5.1); TOTAL BILIRUBIN 0.4 mg/dL (0.0-1.0)
[2021-12-02] MEDS ORDERED: METO-486 PO (03:06)
[2021-12-02 03:48] VITALS: BP 129/78
== END 2021-12-02 03:48 | disposition home or self-care (01) ==
LOC: MED 21:05
DX: E11.65 Type 2 diabetes mellitus with hyperglycemia (principal); R10.13 Epigastric pain; K21.9 Gastro-esophageal reflux disease without esophagitis
CPT/HCPCS: 36415; 74176; 80053; 82009; 83690; 85025; 93005; 96374; 96375; 99285; J2060; J2405; J2765

== ENCOUNTER 2022-06-23 11:50 | Emergency (ER) | payer OTHER ==
[~2022-06-23] VITALS: Ht 165.1 cm; Wt 57.2 kg
[~2022-06-23 11:50] MED LIST changes: +METO-486 PO
--- NOTE | 2022-06-23 11:58 | NUR ---
PT TO ROOM 9 VIA EMS
[2022-06-23 11:59] VITALS: BP 142/102
[2022-06-23] MEDS ORDERED: METOCLOPRAMIDE 10 MG/2 ML INJ VIAL IVP ONE (12:05)
[2022-06-23] MEDS ORDERED: NACL 0.9% 1,000 ML IV ONE ×2 (12:05)
[2022-06-23] MEDS ORDERED: KETOROLAC 30 MG/ML VIAL IVP ONE (12:05)
[2022-06-23] MEDS ORDERED: diphenhydrAMINE 50 MG/ML VIAL IVP ONE (12:05)
--- NOTE | 2022-06-23 12:10 | NUR ---
31 y/o male biba from home with c/o of epigastric pain + vomiting x 10 episodes today, states blood in emesis x4, dark red in color. Diarrhea x 3 today. Abdomen is soft, flat, non-tender, bowel sounds active x4. Pain is intermittent, reported at 8/10 "squeezing pressure", guarding noted with palpation to hypogastric region. Denies fever, chills, cp, dysuria. Denies taking medication at home for pain. Denies recent travel. States similar symptoms 2 days ago, treated at home with fluids. pmh: type 1 diabetic, gastritis nka
--- NOTE | 2022-06-23 12:33 | NUR ---
lab at bedside
[2022-06-23] MEDS ORDERED: FAMO-92 PO (12:38)
[2022-06-23] MEDS ORDERED: METO-485 PO (12:38)
[2022-06-23 12:50] LABS: BASOPHILS % (AUTO) 0.3 % (0.0-2.0); EOSINOPHILS % (AUTO) 0.2 % (0.0-4.0); HEMATOCRIT 42.4 % (36-52); HEMOGLOBIN 14.6 g/dL (12.0-18.0); LYMPHOCYTES % (AUTO) 8.9 % (20.5-51.1); MEAN CORPUSCULAR HEMOGLOBIN 31 pg (27-31); MEAN CORPUSCULAR HGB CONC 34 g/dL (33-37); MEAN CORPUSCULAR VOLUME 89.6 fL (80-94); MONOCYTES # (AUTO) 0.3 K/uL (0.8-1.0); NEUTROPHILS # (AUTO) 9.8 K/uL (1.8-7.7); NEUTROPHILS % (AUTO) 87.6 % (42.2-75.2); PLATELET COUNT (AUTO) 194 K/uL (140-450); RED BLOOD CELL COUNT(AUTO) 4.73 MIL/uL (4.20-6.10); RED CELL DISTRIBUTION WIDTH 12.8 % (11.6-13.7); WHITE BLOOD COUNT (AUTO) 11.2 K/uL (4.8-10.8)
--- NOTE | 2022-06-23 12:52 | NUR ---
pt resting in bed with eyes closed, respirations even and unlabored. No episodes of vomiting since arrival. Ross side rails raised, bed in lowest position. Call light within reach.
[2022-06-23 13:06] LABS: ALBUMIN 3.7 g/dL (3.4-5.0); ANION GAP 12.5 (8-16); CARBON DIOXIDE 26.2 mmol/L (21-32); CREATININE 0.8 mg/dL (0.6-1.3); POTASSIUM 3.7 mmol/L (3.5-5.1); TOTAL BILIRUBIN 0.7 mg/dL (0.0-1.0)
[2022-06-23] MEDS ORDERED: MIDAZOLAM 2 MG/2 ML VIAL IVP ONE (13:25)
[2022-06-23 13:56] VITALS: BP 142/102
--- NOTE | 2022-06-23 13:56 | NUR ---
Patient discharged with v/s stable. Written and verbal after care instructions about gastroparesis given and explained. Patient alert, oriented and verbalized understanding of instructions. Ambulatory with steady gait. All questions addressed prior to discharge. ID band removed. Patient advised to follow up with PMD. Rx of pepcid, reglan given. Patient educated on indication of medication including possible reaction and side effects. Opportunity to ask questions provided and answered.
== END 2022-06-23 13:58 | disposition home or self-care (01) ==
LOC: MED 11:50
DX: R10.13 Epigastric pain (principal); R11.2 Nausea with vomiting, unspecified; E10.65 Type 1 diabetes mellitus with hyperglycemia; E10.43 Type 1 diabetes mellitus with diabetic autonomic (poly)neuropathy; K31.84 Gastroparesis; K21.9 Gastro-esophageal reflux disease without esophagitis; Z79.4 Long term (current) use of insulin; Z79.899 Other long term (current) drug therapy
CPT/HCPCS: 36415; 80053; 85025; 96361; 96374; 96375; 99284; J1200; J1885; J2765; J7030; J2250

== ENCOUNTER 2022-08-02 19:57 | Emergency (ER) | payer OTHER ==
[~2022-08-02] VITALS: Ht 162.6 cm; Wt 56.7 kg
[2022-08-02 19:57] VITALS: BP 150/77
[~2022-08-02 19:57] MED LIST changes: +FAMO-92 PO; +METO-485 PO
--- NOTE | 2022-08-02 20:00 | NUR ---
31/M BIBA FROM HOME WITH C/C LOWER ABD PAIN X 3 DAYS + N/V . DELIVERY TECHNICIAN GIVEN ZOFRAN 8 MG IVP, TORADOL 30 MG IVP. PATIENT CONTINUES TO COMPLAIN OF SHARP 7/10 PAIN. AAOX4. PMHX DM NKA
[2022-08-02] MEDS ORDERED: NACL 0.9% 1,000 ML IV SCH (20:05)
[2022-08-02] MEDS ORDERED: ONDANSETRON 4 MG/2 ML VIAL IVP ONE (20:05)
[2022-08-02] MEDS ORDERED: KETOROLAC 30 MG/ML VIAL IVP ONE (20:05)
--- NOTE | 2022-08-02 20:07 | NUR ---
PT KRZYSZTOF BLS. TAKEN TO BED 8
[2022-08-02] MEDS ORDERED: MORPHINE SULFATE 4 MG/ML SYR IVP ONE (20:15)
[2022-08-02 20:19] LABS: BASOPHILS # (AUTO) 0.1 K/uL (0.00-0.22); BASOPHILS % (AUTO) 0.6 % (0.0-2.0); EOSINOPHILS % (AUTO) 0.1 % (0.0-4.0); HEMATOCRIT 49.3 % (36-52); HEMOGLOBIN 16.8 g/dL (12.0-18.0); LYMPHOCYTES # (AUTO) 1.9 K/uL (2.0-11.5); MEAN CORPUSCULAR HEMOGLOBIN 30 pg (27-31); MEAN CORPUSCULAR HGB CONC 34 g/dL (33-37); MEAN CORPUSCULAR VOLUME 88.7 fL (80-94); MONOCYTES # (AUTO) 0.7 K/uL (0.8-1.0); MONOCYTES % (AUTO) 5.7 % (1.7-9.3); NEUTROPHILS # (AUTO) 10.2 K/uL (1.8-7.7); NEUTROPHILS % (AUTO) 78.6 % (42.2-75.2); PLATELET COUNT (AUTO) 271 K/uL (140-450); RED BLOOD CELL COUNT(AUTO) 5.56 MIL/uL (4.20-6.10); RED CELL DISTRIBUTION WIDTH 12.7 % (11.6-13.7)
--- NOTE | 2022-08-02 20:20 | NUR ---
IV FLUIDS INITIATED. MEDICATED PER ORDERS. TOLERATED WELL
--- NOTE | 2022-08-02 20:29 | NUR ---
Leeann lisa in ED - 08/02/22 at 2028 by MODESTO ORAL TEMP TAKEN 99.7. MD CALIX.
[2022-08-02 20:38] LABS: ALBUMIN 4.2 g/dL (3.4-5.0); ANION GAP 17.5 (8-16); CARBON DIOXIDE 21.3 mmol/L (21-32); CHLORIDE 96 mmol/L (98-107); CREATININE 1.1 mg/dL (0.6-1.3); GFR ARICAN-AMERICAN 101 mL/min (>90); GLUCOSE 348 mg/dL (74-106); POTASSIUM 4.8 mmol/L (3.5-5.1); SODIUM SERUM 130 mmol/L (136-145); TOTAL BILIRUBIN 0.8 mg/dL (0.0-1.0); UREA NITROGEN, BLOOD 19 mg/dL (7-18)
[2022-08-02 20:49] LABS: LIPASE 36 U/L (73-393)
--- NOTE | 2022-08-02 21:30 | NUR ---
[place] TAKEN TO CT VIA RAFFY
--- NOTE | 2022-08-02 21:37 | NUR ---
PT RETURN FROM CT
--- NOTE | 2022-08-02 23:00 | NUR ---
PATIENT STATED THAT HE WAS FEELINIG MUCH BETTER. 0/10 PAIN
--- NOTE | 2022-08-02 23:13 | NUR ---
Dr. Henson examining patient.
[2022-08-02] MEDS ORDERED: ACET-8386 PO (23:42)
[2022-08-02] MEDS ORDERED: IBUP-2213 PO (23:42)
--- NOTE | 2022-08-02 23:48 | NUR ---
IV removed, catheter intact and site benign. Applied folded 4x4 gauze and tape to stop bleeding.
[2022-08-02 23:50] VITALS: BP 105/55
--- NOTE | 2022-08-02 23:50 | NUR ---
Patient discharged with v/s stable. Written and verbal after care instructions given N/V and explained. Patient alert, oriented and verbalized understanding of instructions. Ambulatory with steady gait. All questions addressed prior to discharge. ID band removed. Patient advised to follow up with PMD. Rx of IBUPROFEN AND HYDROCODONE/ACETAMINOPHEN given.
--- NOTE | 2022-08-02 23:50 | NUR ---
Chart checked and completed.
== END 2022-08-02 23:50 | disposition home or self-care (01) ==
LOC: MED 19:57
DX: R10.13 Epigastric pain (principal); R10.31 Right lower quadrant pain; R11.2 Nausea with vomiting, unspecified; E10.9 Type 1 diabetes mellitus without complications; K21.9 Gastro-esophageal reflux disease without esophagitis; Z79.899 Other long term (current) drug therapy
CPT/HCPCS: 36415; 74176; 80053; 83690; 85025; 96361; 96374; 96375; 99284; J1885; J2270; J2405; J7030

== ENCOUNTER 2022-09-09 02:55 | Emergency (ER) | payer OTHER ==
[~2022-09-09] VITALS: Ht 165.1 cm; Wt 56.7 kg
[~2022-09-09 02:55] MED LIST changes: +ACET-8386 PO; +IBUP-2213 PO
[2022-09-09 03:00] VITALS: BP 147/50
--- NOTE | 2022-09-09 03:00 | NUR ---
KRZYSZTOF ALS TO BED #2
[2022-09-09] MEDS ORDERED: KETOROLAC 15 MG/ML VIAL IVP ONE (03:20)
[2022-09-09] MEDS ORDERED: METOCLOPRAMIDE 10 MG/2 ML INJ VIAL IVP ONE (03:20)
[2022-09-09] MEDS ORDERED: NACL 0.9% 2,000 ML IV ONE (03:20)
[2022-09-09] MEDS ORDERED: diphenhydrAMINE 50 MG/ML VIAL IVP ONE (03:20)
[2022-09-09] MEDS ORDERED: MIDAZOLAM 2 MG/2 ML VIAL IVP ONE (03:20)
[2022-09-09 03:37] LABS: BASOPHILS % (AUTO) 0.3 % (0.0-2.0); HEMATOCRIT 45.4 % (36-52); HEMOGLOBIN 15.6 g/dL (12.0-18.0); LYMPHOCYTES # (AUTO) 0.9 K/uL (2.0-11.5); LYMPHOCYTES % (AUTO) 6.2 % (20.5-51.1); MEAN CORPUSCULAR HEMOGLOBIN 31 pg (27-31); MEAN CORPUSCULAR HGB CONC 34 g/dL (33-37); MEAN CORPUSCULAR VOLUME 89.3 fL (80-94); MONOCYTES # (AUTO) 0.2 K/uL (0.8-1.0); MONOCYTES % (AUTO) 1.3 % (1.7-9.3); NEUTROPHILS # (AUTO) 13.9 K/uL (1.8-7.7); NEUTROPHILS % (AUTO) 92.2 % (42.2-75.2); PLATELET COUNT (AUTO) 202 K/uL (140-450); RED BLOOD CELL COUNT(AUTO) 5.09 MIL/uL (4.20-6.10); RED CELL DISTRIBUTION WIDTH 12.9 % (11.6-13.7); WHITE BLOOD COUNT (AUTO) 15.1 K/uL (4.8-10.8)
[2022-09-09 03:57] LABS: ALBUMIN 4.2 g/dL (3.4-5.0); ANION GAP 17.4 (8-16); CARBON DIOXIDE 23.8 mmol/L (21-32); CREATININE 0.9 mg/dL (0.6-1.3); POTASSIUM 5.2 mmol/L (3.5-5.1); TOTAL BILIRUBIN 0.6 mg/dL (0.0-1.0)
[2022-09-09] MEDS ORDERED: MIDAZOLAM 2 MG/2 ML VIAL ONE (04:34)
--- NOTE | 2022-09-09 05:00 | NUR ---
PT RESTING AT THIS TIME. PT VSS. DENIES ANY NEEDS AT THIS TIME. WILL CONTINUE TO MONITOR
[2022-09-09] MEDS ORDERED: MORPHINE SULFATE 4 MG/ML SYR IVP ONE (05:35)
--- NOTE | 2022-09-09 06:00 | NUR ---
PT RESTING, QUIET, CALM, DENIES ANY NEEDS AT THIS TIME AND STATES IMPROVEMENT IN PAIN. WILL CONTINUE TO MONITOR.
[2022-09-09] MEDS ORDERED: HALOPERIDOL IM 5 MG/ML VIAL IM ONE (06:20)
[2022-09-09 06:30] VITALS: BP 94/39
--- NOTE | 2022-09-09 07:20 | NUR ---
REPORT RECEIVED FROM JUAN CARLOS MIRANDA, RECIEVED PT IN BED, DENIES PAIN, NV AT THIS TIME
--- NOTE | 2022-09-09 07:20 | NUR ---
REPORT TO JACQUELIN MIRANDA
--- NOTE | 2022-09-09 07:34 | NUR ---
Patient discharged with v/s stable. Written and verbal after care instructions ABOUT GASTROPARESIS given and explained. Patient verbalized understanding. Ambulatory with steady gait. All questions addressed prior to discharge. Advised to follow up with PMD.
== END 2022-09-09 07:33 | disposition home or self-care (01) ==
LOC: MED 02:55
DX: K21.9 Gastro-esophageal reflux disease without esophagitis (principal); E11.9 Type 2 diabetes mellitus without complications; Z79.4 Long term (current) use of insulin; Z79.899 Other long term (current) drug therapy
CPT/HCPCS: 36415; 80053; 83690; 85025; 96361; 96372; 96374; 96375; 99284; J1200; J1630; J1885; J2250; J2270; J2765

== ENCOUNTER 2022-11-22 06:45 | Emergency (ER) | payer OTHER ==
[~2022-11-22] VITALS: Ht 170.2 cm; Wt 63.5 kg
[2022-11-22 06:45] VITALS: BP 174/94
[~2022-11-22 06:45] MED LIST changes: -ACET-8386 PO; +ACET-8905 PO
--- NOTE | 2022-11-22 06:46 | NUR ---
PT KRZYSZTOF ALS. TAKEN TO BED 11
[2022-11-22] MEDS ORDERED: MORPHINE SULFATE 4 MG/ML SYR IVP ONE (07:05)
[2022-11-22] MEDS ORDERED: NACL 0.9% 1,000 ML IV SCH (07:05)
[2022-11-22] MEDS ORDERED: FAMOTIDINE 20 MG/2 ML VIAL IVP ONE (07:05)
[2022-11-22] MEDS ORDERED: PROCHLORPERAZINE 10 MG/2 ML VIAL IVP ONE ×2 (07:05→08:10)
--- NOTE | 2022-11-22 07:11 | NUR ---
Dr. Tovar examining patient.
--- NOTE | 2022-11-22 07:11 | NUR ---
pt came in with neause and vomitting at home x4 and complaining epigastic pain 10/10 presure. room air and usteady.
--- NOTE | 2022-11-22 07:16 | NUR ---
Report and continuation of care received from RUTH Pierce. Received patient A&Ox4 resting in semi-fowlers position. SpO2 100% R/A, HR 51. Dr. Tovar notified of pt's HR. Per pt, "I think it's normally on the low side."
[2022-11-22 07:24] LABS: BASOPHILS # (AUTO) 0.1 K/uL (0.00-0.22); BASOPHILS % (AUTO) 0.6 % (0.0-2.0); HEMATOCRIT 46.9 % (36-52); HEMOGLOBIN 16.4 g/dL (12.0-18.0); LYMPHOCYTES # (AUTO) 0.8 K/uL (2.0-11.5); LYMPHOCYTES % (AUTO) 4.9 % (20.5-51.1); MEAN CORPUSCULAR HEMOGLOBIN 31 pg (27-31); MEAN CORPUSCULAR HGB CONC 35 g/dL (33-37); MEAN CORPUSCULAR VOLUME 87.3 fL (80-94); MONOCYTES # (AUTO) 0.3 K/uL (0.8-1.0); MONOCYTES % (AUTO) 1.9 % (1.7-9.3); NEUTROPHILS # (AUTO) 14.5 K/uL (1.8-7.7); NEUTROPHILS % (AUTO) 92.6 % (42.2-75.2); PLATELET COUNT (AUTO) 265 K/uL (140-450); RED BLOOD CELL COUNT(AUTO) 5.37 MIL/uL (4.20-6.10); RED CELL DISTRIBUTION WIDTH 12.9 % (11.6-13.7); WHITE BLOOD COUNT (AUTO) 15.7 K/uL (4.8-10.8)
[2022-11-22 07:34] LABS: ALBUMIN 4.7 g/dL (3.4-5.0); ANION GAP 14.4 (8-16); CARBON DIOXIDE 23.7 mmol/L (21-32); CREATININE 0.9 mg/dL (0.6-1.3); POTASSIUM 4.1 mmol/L (3.5-5.1); TOTAL BILIRUBIN 0.8 mg/dL (0.0-1.0)
--- NOTE | 2022-11-22 08:05 | NUR ---
Pt awake in semi-fowlers position verbalizes increased pain, 9/[address] Tovar made aware and order to be placed.
--- NOTE | 2022-11-22 08:25 | NUR ---
Pt unable to void at this time.
[2022-11-22] MEDS ORDERED: NACL 0.9% 1,000 ML IV ONE (08:35)
--- NOTE | 2022-11-22 08:49 | NUR ---
Urinal at bedside; unable to provide urine sample at this time.
--- NOTE | 2022-11-22 08:49 | NUR ---
Patient with relief to pain; states 5/10 at this time. satellite project site monitor remains in place.
--- NOTE | 2022-11-22 09:46 | NUR ---
Patient voided in urinal. Urine sample collected, walked to lab and handed to CPT.
[2022-11-22] MEDS ORDERED: ONDA-188 PO (10:25)
[2022-11-22] MEDS ORDERED: OMEP40EC23 PO (10:25)
[2022-11-22 10:32] LABS: APPEARANCE,URINE CLEAR (CLEAR); BILIRUBIN,URINE NEGATIVE (NEGATIVE); BLOOD, URINE NEGATIVE (NEGATIVE); COLOR,URINE YELLOW (YELLOW); LEUKOCYTE ESTERASE ,URINE NEGATIVE (NEGATIVE); NITRITE, URINE NEGATIVE (NEGATIVE); UGLUCOSE 3+ (NEGATIVE)
[2022-11-22 10:39] VITALS: BP 128/52
--- NOTE | 2022-11-22 10:41 | NUR ---
Patient discharged with v/s stable. Written and verbal after care instructions given and explained for Gastroparesis. Patient alert, oriented and verbalized understanding of instructions. Ambulatory with steady gait. All questions addressed prior to discharge. ID band removed. Patient advised to follow up with PMD. Rx of Prilosec, Zofran ODT given. Patient educated on indication of medication including possible reaction and side effects. Opportunity to ask questions provided and answered. Copy of work note and lab work given to patient.
[2022-11-22 10:57] LABS: RBC,URINE NONE SEEN /HPF (0-5)
[2022-11-22 10:58] LABS: BARBITURATE, URINE NEGATIVE ng/ml (NEG <=200); BENZODIAZEPINE, URINE NEGATIVE ng/mL (NEG <=200); CANNABINOID, URINE POSITIVE ng/mL (NEG <=50); COCAINE, URINE NEGATIVE ng/mL (NEG <=300); PHENCYCLIDINE SCREEN,URINE NEGATIVE ng/mL (NEG <=25)
[2022-11-22 10:59] LABS: OPIATE, URINE POSITIVE ng/mL (NEG <=2000)
== END 2022-11-22 10:41 | disposition home or self-care (01) ==
LOC: MED 06:45
DX: E10.43 Type 1 diabetes mellitus with diabetic autonomic (poly)neuropathy (principal); K31.84 Gastroparesis; R11.2 Nausea with vomiting, unspecified; D72.829 Elevated white blood cell count, unspecified; K21.9 Gastro-esophageal reflux disease without esophagitis; Z79.4 Long term (current) use of insulin; Z79.899 Other long term (current) drug therapy
CPT/HCPCS: 36415; 80053; 80305; 81001; 83690; 85025; 87086; 93005; 96361; 96374; 96375; 96376; 99284; J0780; J2270; J3490; J7030

== ENCOUNTER 2023-03-03 10:58 | Emergency (ER) | payer OTHER ==
[~2023-03-03] VITALS: Ht 165.1 cm; Wt 56.7 kg
[~2023-03-03 10:58] MED LIST changes: +OMEP40EC23 PO; +ONDA-188 PO
[2023-03-03 10:59] VITALS: BP 163/97
--- NOTE | 2023-03-03 11:12 | NUR ---
32 yo/m biba from home w c/o epigastric pain 10/10 pressure like, non-rad, +n/v since last night w specs of blood in emesis resolved at this time. pt relates symptoms to his gastroparesis. pt took zofran at home x2 hours ago unk amount "1 small pill", and was given 8mg ivp zofran mining captain. pmh: gastroparesis, dm1 allergies: denies
[2023-03-03] MEDS ORDERED: ALUMINUM HYD/MAG/SIMETHICONE 30 ML UDC PO ONE (11:20)
[2023-03-03] MEDS ORDERED: FAMOTIDINE 20 MG/2 ML VIAL IVP ONE (11:20)
[2023-03-03] MEDS ORDERED: NACL 0.9% 1,000 ML IV SCH (11:20)
[2023-03-03] MEDS ORDERED: diphenhydrAMINE 50 MG/ML VIAL IVP ONE ×2 (11:20→13:00)
[2023-03-03] MEDS ORDERED: HALOPERIDOL IM 5 MG/ML VIAL IM ONE (11:20)
[2023-03-03 12:01] LABS: ALBUMIN 4.2 g/dL (3.4-5.0); ANION GAP 15.5 (8-16); CREATININE 0.9 mg/dL (0.6-1.3); POTASSIUM 3.5 mmol/L (3.5-5.1); TOTAL BILIRUBIN 0.8 mg/dL (0.0-1.0)
[2023-03-03 12:07] LABS: BASOPHILS # (AUTO) 0.1 K/uL (0.00-0.22); BASOPHILS % (AUTO) 0.6 % (0.0-2.0); EOSINOPHILS # (AUTO) 0.1 K/uL (0-0.4); EOSINOPHILS % (AUTO) 0.7 % (0.0-4.0); HEMATOCRIT 47.2 % (36-52); HEMOGLOBIN 16.4 g/dL (12.0-18.0); LYMPHOCYTES # (AUTO) 2.2 K/uL (2.0-11.5); MEAN CORPUSCULAR HEMOGLOBIN 31 pg (27-31); MEAN CORPUSCULAR HGB CONC 35 g/dL (33-37); MEAN CORPUSCULAR VOLUME 90.3 fL (80-94); MONOCYTES # (AUTO) 0.6 K/uL (0.8-1.0); NEUTROPHILS # (AUTO) 8.3 K/uL (1.8-7.7); NEUTROPHILS % (AUTO) 73.7 % (42.2-75.2); PLATELET COUNT (AUTO) 282 K/uL (140-450); RED BLOOD CELL COUNT(AUTO) 5.22 MIL/uL (4.20-6.10); RED CELL DISTRIBUTION WIDTH 13.3 % (11.6-13.7); WHITE BLOOD COUNT (AUTO) 11.2 K/uL (4.8-10.8)
--- NOTE | 2023-03-03 12:21 | NUR ---
pt reporting still unable to provide urine. urinal bedside.
--- NOTE | 2023-03-03 12:28 | NUR ---
pt ambulatory to bathroom.
--- NOTE | 2023-03-03 12:51 | NUR ---
pt c/o ongoing epi pain, ermd sarah aware.
[2023-03-03] MEDS ORDERED: METOCLOPRAMIDE 10 MG/2 ML INJ VIAL IVP ONE (13:00)
[2023-03-03] MEDS ORDERED: MORPHINE SULFATE 4 MG/ML SYR IVP ONE (13:00)
[2023-03-03 13:06] LABS: APPEARANCE,URINE CLEAR (CLEAR); BILIRUBIN,URINE NEGATIVE (NEGATIVE); BLOOD, URINE NEGATIVE (NEGATIVE); COLOR,URINE YELLOW (YELLOW); LEUKOCYTE ESTERASE ,URINE NEGATIVE (NEGATIVE); NITRITE, URINE NEGATIVE (NEGATIVE); UGLUCOSE 1+ (NEGATIVE)
--- NOTE | 2023-03-03 13:34 | NUR ---
pt resting w eyes closed, breathing even and unlabored.
[2023-03-03] MEDS ORDERED: METO-485 PO (14:01)
[2023-03-03] MEDS ORDERED: FAMO-90 PO (14:01)
[2023-03-03 14:50] VITALS: BP 134/88
--- NOTE | 2023-03-03 14:50 | NUR ---
Patient discharged with v/s stable. Written and verbal after care instructions given. Patient alert, oriented and verbalized understanding of instructions. Ambulatory with steady gait. All questions addressed prior to discharge. ID band removed. Patient advised to follow up with PMD. Rx of PEPCID AND REGLAN given. Opportunity to ask questions provided and answered.
--- NOTE | 2023-03-03 15:07 | NUR ---
The patient's care was reviewed and supervised by [facility] ED, RN.
== END 2023-03-03 14:50 | disposition home or self-care (01) ==
LOC: MED 10:58
DX: R11.2 Nausea with vomiting, unspecified (principal); R10.13 Epigastric pain; K21.9 Gastro-esophageal reflux disease without esophagitis; E10.43 Type 1 diabetes mellitus with diabetic autonomic (poly)neuropathy; K31.84 Gastroparesis; F12.90 Cannabis use, unspecified, uncomplicated; Z79.899 Other long term (current) drug therapy; Z79.1 Long term (current) use of non-steroidal anti-inflammatories (NSAID); Z79.891 Long term (current) use of opiate analgesic
CPT/HCPCS: 36415; 80053; 81003; 83690; 85025; 93005; 96361; 96372; 96374; 96375; 99284; J1200; J1630; J2270; J2765; J3490; J7030

== ENCOUNTER 2023-05-12 11:54 | Emergency (ER) | payer OTHER ==
[~2023-05-12] VITALS: Ht 167.6 cm; Wt 59.0 kg
[~2023-05-12 11:54] MED LIST changes: +FAMO-90 PO
[2023-05-12 12:02] VITALS: BP 137/67; PULSE 112; RESP 18; TEMP 98.1; O2SAT 98
[2023-05-12] MEDS ORDERED: IBUPROFEN 600 MG TAB PO ONE (12:25)
--- NOTE | 2023-05-12 12:48 | NUR ---
PT TAKEN OFF UNIT TO RADIOLOGY BY W/C ESCORTED BY TECH.
--- NOTE | 2023-05-12 13:01 | NUR ---
MEDICATED PT FOR PAIN ORDERED. PT PENDING X-RAY RESULTS.
--- NOTE | 2023-05-12 13:40 | NUR ---
KNEE IMMOBILIZER APPLIED TO R LEG. + CMS. PT GIVEN CRUTCHES AND RETURNED SAFE DEMONSTRATION.
[2023-05-12] MEDS ORDERED: ACET-8905 PO (13:48)
[2023-05-12] MEDS ORDERED: IBUP-2213 PO (13:48)
--- NOTE | 2023-05-12 14:00 | NUR ---
Patient discharged with v/s stable. Written and verbal after care instructions given and explained. Patient alert, oriented and verbalized understanding of instructions. Carried with to home. All questions addressed prior to discharge. ID band removed. Patient advised to follow up with PMD. Rx of HYDROCODONE/TYLENOL MOTRIN given. Patient educated on indication of medication including possible reaction and side effects. Opportunity to ask questions provided and answered.
--- NOTE | 2023-05-12 14:09 | NUR ---
PATIENT PRESENTS TO ED WITH RT KNEE PAIN . PT STATES . DENIES N/V/D; SKIN IS PINK/WARM/DRY; AAOX4 WITH EVEN AND STEADY GAIT; LUNGS CLEAR BL; HR EVEN AND REGULAR; PT DENIES ANY FEVER, CP, SOB, OR COUGH AT THIS TIME; PATIENT STATES PAIN OF 4/10 AT THIS TIME; VSS.PREPARE FOR DC
== END 2023-05-12 14:15 | disposition home or self-care (01) ==
LOC: MED 11:54
DX: S82.141A Displaced bicondylar fracture of right tibia, initial encounter for closed fracture (principal); E10.9 Type 1 diabetes mellitus without complications; K21.9 Gastro-esophageal reflux disease without esophagitis; Z79.899 Other long term (current) drug therapy; Z79.4 Long term (current) use of insulin; W01.198A Fall on same level from slipping, tripping and stumbling with subsequent striking against other object, initial encounter; Y93.89 Activity, other specified; Y92.098 Other place in other non-institutional residence as the place of occurrence of the external cause; Y99.8 Other external cause status
CPT/HCPCS: 29505; 73562; 99283

== ENCOUNTER 2023-09-05 19:33 | Emergency (ER) | payer OTHER ==
[~2023-09-05] VITALS: Ht 165.1 cm; Wt 72.6 kg
[~2023-09-05 19:33] MED LIST changes: +BEN10 PO; +CAPS42.514 TP; +ONDA-188 SL
[2023-09-05 19:41] VITALS: PULSE 87; RESP 20; TEMP 97.2; O2SAT 97
[2023-09-05] MEDS ORDERED: METOCLOPRAMIDE 10 MG/2 ML INJ VIAL IVP ONE (20:20)
[2023-09-05] MEDS ORDERED: NACL 0.9% 1,000 ML IV ONE (20:20)
[2023-09-05] MEDS ORDERED: diphenhydrAMINE 50 MG/ML VIAL IVP ONE (20:45)
[2023-09-05] MEDS ORDERED: MORPHINE SULFATE 4 MG/ML SYR IVP ONE (20:45)
[2023-09-05 21:01] LABS: BASOPHILS % (AUTO) 0.3 % (0.0-2.0); HEMATOCRIT 47.9 % (36-52); HEMOGLOBIN 16.6 g/dL (12.0-18.0); LYMPHOCYTES # (AUTO) 1.1 K/uL (2.0-11.5); LYMPHOCYTES % (AUTO) 7.5 % (20.5-51.1); MEAN CORPUSCULAR HEMOGLOBIN 31 pg (27-31); MEAN CORPUSCULAR HGB CONC 35 g/dL (33-37); MEAN CORPUSCULAR VOLUME 88.8 fL (80-94); MONOCYTES # (AUTO) 0.4 K/uL (0.8-1.0); MONOCYTES % (AUTO) 2.7 % (1.7-9.3); NEUTROPHILS % (AUTO) 89.5 % (42.2-75.2); PLATELET COUNT (AUTO) 230 K/uL (140-450); RED BLOOD CELL COUNT(AUTO) 5.39 MIL/uL (4.20-6.10); RED CELL DISTRIBUTION WIDTH 12.6 % (11.6-13.7); WHITE BLOOD COUNT (AUTO) 14.5 K/uL (4.8-10.8)
[2023-09-05 21:29] LABS: ALBUMIN 4.3 g/dL (3.4-5.0); ANION GAP 17.8 (8-16); CALCIUM 9.3 mg/dL (8.5-10.1); CARBON DIOXIDE 24.8 mmol/L (21-32); CREATININE 0.9 mg/dL (0.6-1.3); POTASSIUM 3.6 mmol/L (3.5-5.1); TOTAL BILIRUBIN 0.7 mg/dL (0.0-1.0); TOTAL PROTEIN, SERUM 8.1 g/dL (6.4-8.2)
[2023-09-06 00:04] LABS: APPEARANCE,URINE CLEAR (CLEAR); BILIRUBIN,URINE NEGATIVE (NEGATIVE); BLOOD, URINE TRACE-I (NEGATIVE); COLOR,URINE YELLOW (YELLOW); LEUKOCYTE ESTERASE ,URINE NEGATIVE (NEGATIVE); NITRITE, URINE NEGATIVE (NEGATIVE); PROTEIN,URINE TRACE (NEGATIVE); UGLUCOSE 3+ (NEGATIVE); UROBILINOGEN,URINE 0.2 EU/dL (0.2 - 1)
[2023-09-06 00:16] LABS: AMPHETAMINE, URINE NEGATIVE ng/ml (NEG <=1000); BARBITURATE, URINE NEGATIVE ng/ml (NEG <=200); BENZODIAZEPINE, URINE NEGATIVE ng/mL (NEG <=200); CANNABINOID, URINE POSITIVE ng/mL (NEG <=50); COCAINE, URINE NEGATIVE ng/mL (NEG <=300); PHENCYCLIDINE SCREEN,URINE NEGATIVE ng/mL (NEG <=25)
[2023-09-06 00:17] LABS: OPIATE, URINE POSITIVE ng/mL (NEG <=2000)
[2023-09-06 00:21] LABS: RBC,URINE 0-5 /HPF (0-5); WBC,URINE 0-5 /HPF (0-5)
[2023-09-06 00:22] LABS: BACTERIA,URINE >30 (MANY) /HPF (None Seen); MUCUS,URINE 1+ /LPF (None Seen); SQUAMOUS EPITHELIAL CELL,UR 0-3 (FEW) /LPF (0-3 (FEW))
[2023-09-06] MEDS ORDERED: FAMOTIDINE 20 MG/2 ML VIAL IVP ONE (00:25)
[2023-09-06] MEDS ORDERED: ESOM40EC PO (00:32)
[2023-09-06 00:50] VITALS: BP 145/88; PULSE 65; RESP 20; TEMP 98; O2SAT 98
== END 2023-09-06 00:50 | disposition home or self-care (01) ==
LOC: MED 19:33
DX: E10.43 Type 1 diabetes mellitus with diabetic autonomic (poly)neuropathy (principal); K31.84 Gastroparesis; R11.2 Nausea with vomiting, unspecified; K21.9 Gastro-esophageal reflux disease without esophagitis; Z79.899 Other long term (current) drug therapy; Z79.1 Long term (current) use of non-steroidal anti-inflammatories (NSAID)
CPT/HCPCS: 36415; 74176; 80053; 80305; 81001; 82009; 83690; 85025; 96361; 96374; 96375; 99285; J1200; J2270; J2765; J3490; J7030

== ENCOUNTER 2024-04-21 19:42 | Emergency (ER) | payer OTHER ==
[~2024-04-21] VITALS: Ht 165.1 cm; Wt 65.8 kg
[~2024-04-21 19:42] MED LIST changes: +ESOM40EC PO
[2024-04-21 19:51] VITALS: BP 146/86; PULSE 87; RESP 18; TEMP 98.2
[2024-04-21] MEDS ORDERED: VALA1TAB40 PO (20:10)
[2024-04-21] MEDS ORDERED: DOXY-22 PO (20:10)
[2024-04-21] MEDS ORDERED: BACTO TP (20:10)
[2024-04-21] MEDS ORDERED: IBUP-2213 PO (20:11)
[2024-04-21 20:19] VITALS: BP 146/86; PULSE 87; RESP 18; TEMP 98.2
== END 2024-04-21 20:19 | disposition home or self-care (01) ==
LOC: MED 19:42
DX: J32.9 Chronic sinusitis, unspecified (principal); K21.9 Gastro-esophageal reflux disease without esophagitis; E10.9 Type 1 diabetes mellitus without complications; Z79.4 Long term (current) use of insulin; Z79.899 Other long term (current) drug therapy; Z79.2 Long term (current) use of antibiotics; Z79.1 Long term (current) use of non-steroidal anti-inflammatories (NSAID)
CPT/HCPCS: 99283

== ENCOUNTER 2024-06-10 11:34 | Emergency (ER) | payer OTHER ==
[~2024-06-10] VITALS: Ht 170.2 cm; Wt 59.0 kg
[~2024-06-10 11:34] MED LIST changes: +BACTO TP; +DOXY-22 PO; +VALA1TAB40 PO
[2024-06-10 11:39] VITALS: BP 140/94; PULSE 52; RESP 15; TEMP 98.3; O2SAT 98
[2024-06-10] MEDS ORDERED: ONDANSETRON 4 MG/2 ML VIAL ONE (12:38)
[2024-06-10] MEDS: ONDANSETRON 4 MG/2 ML VIAL IVP ONE (12:40)
[2024-06-10 12:45] VITALS: O2SAT 99
[2024-06-10 12:52] LABS: BASOPHILS % (AUTO) 0.1 % (0.0-2.0); HEMATOCRIT 47.8 % (36-52); HEMOGLOBIN 16.3 g/dL (12.0-18.0); LYMPHOCYTES # (AUTO) 1.1 K/uL (2.0-11.5); LYMPHOCYTES % (AUTO) 6.7 % (20.5-51.1); MEAN CORPUSCULAR HEMOGLOBIN 30 pg (27-31); MEAN CORPUSCULAR HGB CONC 34 g/dL (33-37); MEAN CORPUSCULAR VOLUME 88.5 fL (80-94); MONOCYTES # (AUTO) 0.3 K/uL (0.8-1.0); MONOCYTES % (AUTO) 1.8 % (1.7-9.3); NEUTROPHILS # (AUTO) 14.8 K/uL (1.8-7.7); NEUTROPHILS % (AUTO) 91.4 % (42.2-75.2); PLATELET COUNT (AUTO) 291 K/uL (140-450); RED CELL DISTRIBUTION WIDTH 13.2 % (11.6-13.7); WHITE BLOOD COUNT (AUTO) 16.2 K/uL (4.8-10.8)
[2024-06-10] MEDS: NACL 0.9% 1,000 ML IV ONE (12:56)
[2024-06-10] MEDS: fentaNYL citrate 0.05 MG/ML VIAL IVP ONE (13:06)
[2024-06-10 13:08] LABS: ANION GAP 20.8 (8-16); CALCIUM 10.2 mg/dL (8.5-10.1); CARBON DIOXIDE 21.7 mmol/L (21-32); CREATININE 0.8 mg/dL (0.6-1.3); POTASSIUM 3.5 mmol/L (3.5-5.1)
[2024-06-10 13:13] LABS: ALBUMIN 4.5 g/dL (3.4-5.0); BILIRUBIN,DIRECT 0.1 mg/dL (0.0-0.3); TOTAL BILIRUBIN 0.6 mg/dL (0.0-1.0); TOTAL PROTEIN, SERUM 8.7 g/dL (6.4-8.2)
[2024-06-10] MEDS ORDERED: METO-485 PO (13:56)
[2024-06-10 14:43] VITALS: BP 138/92; PULSE 62; RESP 15; TEMP 98.3; O2SAT 99
== END 2024-06-10 14:45 | disposition home or self-care (01) ==
LOC: MED 11:34
DX: E11.43 Type 2 diabetes mellitus with diabetic autonomic (poly)neuropathy (principal); K31.84 Gastroparesis; R07.9 Chest pain, unspecified; R06.02 Shortness of breath; K21.9 Gastro-esophageal reflux disease without esophagitis; Z79.4 Long term (current) use of insulin; Z79.899 Other long term (current) drug therapy
CPT/HCPCS: 36415; 80048; 80076; 82948; 83690; 85025; 93005; 96374; 96375; 99284; J2405; J3010; J7030

== ENCOUNTER 2024-06-11 23:01 | Emergency (ER) | payer OTHER ==
[~2024-06-11] VITALS: Ht 165.1 cm; Wt 59.0 kg
[2024-06-11 23:08] VITALS: BP 191/97; PULSE 88; RESP 16; TEMP 98.4; O2SAT 97
[2024-06-11] MEDS ORDERED: DEXTROSE 50% 50 ML SYR IVP ONE (23:22)
[2024-06-11] MEDS: DEXTROSE 50% 50 ML SYR IVP ONE (23:39)
[2024-06-11 23:58] LABS: BASOPHILS # (AUTO) 0.1 K/uL (0.00-0.22); BASOPHILS % (AUTO) 0.8 % (0.0-2.0); EOSINOPHILS # (AUTO) 0.1 K/uL (0-0.4); EOSINOPHILS % (AUTO) 0.5 % (0.0-4.0); HEMATOCRIT 44.3 % (36-52); LYMPHOCYTES # (AUTO) 2.6 K/uL (2.0-11.5); MEAN CORPUSCULAR HEMOGLOBIN 30 pg (27-31); MEAN CORPUSCULAR HGB CONC 34 g/dL (33-37); MEAN CORPUSCULAR VOLUME 89.4 fL (80-94); MONOCYTES # (AUTO) 0.7 K/uL (0.8-1.0); MONOCYTES % (AUTO) 5.9 % (1.7-9.3); NEUTROPHILS % (AUTO) 69.8 % (42.2-75.2); PLATELET COUNT (AUTO) 253 K/uL (140-450); RED BLOOD CELL COUNT(AUTO) 4.95 MIL/uL (4.20-6.10); RED CELL DISTRIBUTION WIDTH 13.1 % (11.6-13.7); WHITE BLOOD COUNT (AUTO) 11.5 K/uL (4.8-10.8)
[2024-06-12] MEDS: diphenhydrAMINE 50 MG/ML VIAL IVP ONE (00:21)
[2024-06-12] MEDS: PROCHLORPERAZINE 10 MG/2 ML VIAL IVP ONE (00:22)
[2024-06-12 00:25] LABS: ANION GAP 14.1 (8-16); CALCIUM 9.1 mg/dL (8.5-10.1); CARBON DIOXIDE 27.2 mmol/L (21-32); POTASSIUM 3.3 mmol/L (3.5-5.1)
[2024-06-12 00:27] LABS: ALBUMIN 3.8 g/dL (3.4-5.0); BILIRUBIN,DIRECT 0.1 mg/dL (0.0-0.3); TOTAL BILIRUBIN 0.4 mg/dL (0.0-1.0); TOTAL PROTEIN, SERUM 7.4 g/dL (6.4-8.2)
[2024-06-12] MEDS: NACL 0.9% 2,000 ML IV ONE (00:30)
[2024-06-12 02:45] VITALS: BP 135/89; PULSE 81; RESP 16; TEMP 98.4; O2SAT 99
== END 2024-06-12 02:45 | disposition home or self-care (01) ==
LOC: MED 23:01
DX: K31.84 Gastroparesis (principal); E11.9 Type 2 diabetes mellitus without complications; K21.9 Gastro-esophageal reflux disease without esophagitis; Z79.4 Long term (current) use of insulin; Z79.1 Long term (current) use of non-steroidal anti-inflammatories (NSAID); Z79.899 Other long term (current) drug therapy
CPT/HCPCS: 36415; 80048; 80076; 82948; 83690; 85025; 96361; 96374; 96375; 99284; J0780; J1200; J7030

== ENCOUNTER 2024-06-30 21:08 | Emergency (ER) | payer OTHER ==
[~2024-06-30] VITALS: Ht 165.1 cm; Wt 59.0 kg
[2024-06-30 21:34] VITALS: BP 144/86; PULSE 89; RESP 20; TEMP 98.4; O2SAT 98
[2024-06-30 22:24] VITALS: O2SAT 99
[2024-07-01 00:17] VITALS: BP 140/80; PULSE 66; RESP 16; TEMP 98.1; O2SAT 98
== END 2024-07-01 00:17 | disposition home or self-care (01) ==
LOC: MED 21:08
DX: H53.8 Other visual disturbances (principal); E10.9 Type 1 diabetes mellitus without complications; F12.90 Cannabis use, unspecified, uncomplicated; K21.9 Gastro-esophageal reflux disease without esophagitis; Z79.4 Long term (current) use of insulin; Z79.1 Long term (current) use of non-steroidal anti-inflammatories (NSAID); Z79.899 Other long term (current) drug therapy
CPT/HCPCS: 99284

== ENCOUNTER 2024-07-09 14:14 | Emergency (ER) | payer OTHER ==
[~2024-07-09] VITALS: Ht 162.6 cm; Wt 64.9 kg
--- NOTE | 2024-07-09 14:46 | NUR ---
PT AMB TO CHAIR C
[2024-07-09 14:49] VITALS: BP 131/100; PULSE 92; RESP 20; TEMP 98.1; O2SAT 98
--- NOTE | 2024-07-09 15:25 | NUR ---
Patient discharged with v/s stable. Written and verbal after care instructions given FOR WOUND CARE Patient verbalized understanding. Ambulatory with steady gait. All questions addressed prior to discharge. Advised to follow up with PMD. WORK NOTE PROVIDED
== END 2024-07-09 15:25 | disposition home or self-care (01) ==
LOC: MED 14:14
DX: S51.811D Laceration without foreign body of right forearm, subsequent encounter (principal); E11.9 Type 2 diabetes mellitus without complications; K21.9 Gastro-esophageal reflux disease without esophagitis; Z79.899 Other long term (current) drug therapy; Z79.4 Long term (current) use of insulin; W25.XXXD Contact with sharp glass, subsequent encounter
CPT/HCPCS: 82948; 99282

== ENCOUNTER 2024-07-12 19:45 | Emergency (ER) | payer OTHER ==
[~2024-07-12] VITALS: Ht 165.1 cm; Wt 64.4 kg
[2024-07-12 19:51] VITALS: BP 108/72; PULSE 87; RESP 18; TEMP 97.9; O2SAT 97
[2024-07-12] MEDS ORDERED: BACI-418 TP (20:17)
--- NOTE | 2024-07-12 20:20 | NUR ---
Patient discharged with v/s stable. Written and verbal after care instructions given FOR SUTURE REMOVAL CARE Patient verbalized understanding. Ambulatory with steady gait. All questions addressed prior to discharge. Advised to follow up with PMD. RX [id number]
== END 2024-07-12 20:20 | disposition home or self-care (01) ==
LOC: MED 19:45
DX: S51.811D Laceration without foreign body of right forearm, subsequent encounter (principal); Z48.00 Encounter for change or removal of nonsurgical wound dressing; E10.9 Type 1 diabetes mellitus without complications; K21.9 Gastro-esophageal reflux disease without esophagitis; Z79.4 Long term (current) use of insulin; Z79.1 Long term (current) use of non-steroidal anti-inflammatories (NSAID); Z79.899 Other long term (current) drug therapy; X58.XXXD Exposure to other specified factors, subsequent encounter
CPT/HCPCS: 99282

== ENCOUNTER 2024-08-05 18:57 | Emergency (ER) | payer OTHER ==
[~2024-08-05] VITALS: Ht 165.1 cm; Wt 63.5 kg
[~2024-08-05 18:57] MED LIST changes: +BACI-418 TP
[2024-08-05 19:07] VITALS: BP 127/87; PULSE 85; RESP 16; TEMP 97.5; O2SAT 98
[2024-08-05] MEDS: KETOROLAC 30 MG/ML VIAL IM ONE (20:53)
[2024-08-05] MEDS ORDERED: CYCL-711 PO (22:29)
[2024-08-05 22:39] VITALS: BP 127/87; PULSE 85; RESP 16; TEMP 97.5; O2SAT 98
== END 2024-08-05 22:39 | disposition home or self-care (01) ==
LOC: MED 18:57
DX: S29.012A Strain of muscle and tendon of back wall of thorax, initial encounter (principal); S16.1XXA Strain of muscle, fascia and tendon at neck level, initial encounter; E10.9 Type 1 diabetes mellitus without complications; K21.9 Gastro-esophageal reflux disease without esophagitis; R03.0 Elevated blood-pressure reading, without diagnosis of hypertension; F12.90 Cannabis use, unspecified, uncomplicated; Z79.899 Other long term (current) drug therapy; Z79.4 Long term (current) use of insulin; V49.9XXA Car occupant (driver) (passenger) injured in unspecified traffic accident, initial encounter; Y93.89 Activity, other specified; Y92.89 Other specified places as the place of occurrence of the external cause; Y99.8 Other external cause status
CPT/HCPCS: 72080; 96372; 99283; J1885